=== PATIENT | female | born 1960 | race Caucasian/White ===

== ENCOUNTER 2019-07-05 17:17 | Emergency (ER) | payer SELFPAY ==
--- OUTSIDE RECORDS SUMMARY | 2019-07-05 17:18 | XMS REPORT | Summary of Care ---
:1960 Author Organization [facility] Address [address] [place] [id number] Care Team Providers Name Role Phone Jose Lisa Primary Care Provider Reason for Visit Reason Comments Refill Request Encounter Details Date Type Department Care Team Description 04/02/2019 Refill [facility] Endocrinology- Michael Canales MD Refill Request [address] Professional Office [address] Conteh [phone] [address] [place] [address] Allergies Active Allergy Reactions Severity Noted Date Comments Meperidine Hcl Other - See comments High 09/28/2018 migraine documented as of this encounter (statuses as of 04/02/2019) Medications Medication Sig Dispensed Refills Start Date End Date Status QUEtiapine Take 50mg 45 Tab 0 12/14/2013 Active (SEROQUEL) 50 mg nightly for two tablet nights then increase to 100mg nightly thereafter metoprolol tartrate Take 1 Tab by 60 Tab 0 12/14/2013 Active (LOPRESSOR) 25 mg mouth 2 (two) tablet times daily. metformin ER 500 mg Take 2 tablets 360 tablet 1 10/31/2018 Active 24 hr by mouth 2 tabletIndications: (two) times Uncontrolled type 2 daily. diabetes mellitus with hyperglycemia pravastatin 40 mg Take 1 tablet 90 tablet 1 10/31/2018 Active tablet by mouth at bedtime. glimepiride 2 mg Take 1 tablet 180 tablet 1 01/01/2019 Active tabletIndications: by mouth 2 Uncontrolled type 2 (two) times diabetes mellitus daily with with hyperglycemia meals. lisinopril 20 mg Take 1 tablet 30 tablet 3 04/02/2019 Active tabletIndications: by mouth daily. Essential hypertension lisinopril 20 mg Take 1 tablet 30 tablet 3 01/01/2019 Discontinued tabletIndications: by mouth daily. 9 Essential hypertension documented as of this encounter (statuses as of 04/02/2019) Active Problems Not on filedocumented as of this encounter (statuses as of 04/02/2019) Social History Tobacco Use Types Packs/Day Years Used Date Never Smoker Smokeless Tobacco: Never Used Sex Assigned at Date Recorded Not on file Job Start Date Occupation Industry Not on file Not on file Not on file Travel History Travel Start Travel End No recent travel history available. documented as of this encounter Last Filed Vital Signs Not on filedocumented in this encounter Plan of Treatment Date Type Specialty Care Team Description 07/03/2019 Office Visit Endocrinology Diabetes & CanalesMichael MD Metabolism [address] [place] [address] [phone] Health Maintenance Due Date Last Done Comments HEPATITIS C (HCV) SCREEN 1960 PNEUMOCOCCAL 0-64 YEARS COMBINED SERIES (1 1965 of 1 - PPSV23) CREATININE (SERUM) 1969 EYE EXAM 1969 LDL-C 1969 URINE MICROALBUMIN 1969 DTaP,Tdap,and Td Vaccines (1 - Tdap) 1978 PAP SMEAR 02/04/1980 MAMMOGRAM 1999 COLONOSCOPY 2009 Zoster Recombinant Vaccine (SHINGRIX) (1 2009 of 2) INFLUENZA VACCINE (#1) 2019 HgA1C 07/03/2019 01/01/2019 FOOT EXAM 09/29/2019 09/28/2018, 09/28/2018 documented as of this encounter Results Not on filedocumented in this encounter Visit Diagnoses Diagnosis Essential hypertension Unspecified essential hypertension documented in this encounter
--- OUTSIDE RECORDS SUMMARY | 2019-07-05 17:18 | XMS REPORT ---
:1960 Author Organization [facility] Address [address] [place] [address] Dr. Ambrosio [address] [place] [id number] Care Team Providers Name Role Phone Unavailable Unavailable Unavailable Problems This patient has no known problems. Allergies, Adverse Reactions, Alerts This patient has no known allergies or adverse reactions. Medications This patient has no known medications.
[2019-07-05 18:14] LABS: Urine Blood NEGATIVE (NEG); Urine Glucose NEGATIVE (NEG); Urine Protein NEGATIVE (NEG); Urine Specific Gravity <1.005 (1.005-1.030)
--- NOTE | 2019-07-05 18:14 | EDPHYS ---
Physician Documentation [facility] Name: Caryn Johnson Age: 59 yrs Sex: Female : 1960 Arrival Date: 07/05/2019 Time: 17:22 Bed 15 Private MD: ED Physician Humphrey Smith HPI: 07/05 17:59 This 59 yrs old Female presents to ER via EMS with complaints of Mental la1 health issue. 17:59 Pt reports that she has been having voices in her head that tell her that she is going la1 to go to hell and that she may or may not be saved. Pt Denies SI/HI states that she does not want to hurt herself. Reports a previous episode like this in 2004 for which she completed counseling and got better. Was placed on cymbalta by her PCP but quit after 10 days because she did not feel it was helping. . Onset: The symptoms/episode began/occurred today. Severity of symptoms: At their worst the symptoms were moderate in the emergency department the symptoms are unchanged. The patient has experienced a previous episode. The patient has been recently seen by a physician:. Historical: - Allergies: 17:55 Nalfon; ca1 17:55 Levaquin; ca1 - Home Meds: 17:55 Lisinopril Oral [Active]; Metformin Oral [Active]; glimepiride Oral [Active]; ca1 - PMHx: 17:55 Hypertension; Diabetes - NIDDM; Ovarian Ca; ca1 - PSHx: 17:55 Cholecystectomy; Hysterectomy; ca1 - Immunization history:: Adult Immunizations not up to date. - Social history:: Smoking status: Patient/guardian denies using tobacco. - Ebola Screening: : Patient negative for fever greater than or equal to 101.5 degrees Fahrenheit, and additional compatible Ebola Virus Disease symptoms Patient denies exposure to infectious person Patient denies travel to an Ebola-affected area in the 21 days before illness onset No symptoms or risks identified at this time. ROS: 18:02 Constitutional: Negative for fever, chills, and weight loss, Eyes: Negative for injury, la1 pain, redness, and discharge, ENT: Negative for injury, pain, and discharge, Neck: Negative for injury, pain, and swelling, Cardiovascular: Negative for chest pain, palpitations, and edema, Respiratory: Negative for shortness of breath, cough, wheezing, and pleuritic chest pain, Abdomen/GI: Negative for abdominal pain, nausea, vomiting, diarrhea, and constipation, Back: Negative for injury and pain, MS/Extremity: Negative for injury and deformity, Neuro: Negative for headache, weakness, numbness, tingling, and seizure. 18:02 Psych: Positive for anxiety, depression, auditory hallucinations, insomnia, Negative for drug dependence, alcohol dependence, visual hallucinations, homicidal ideation, suicide gesture, suicidal ideation. Exam: 18:02 Constitutional: This is a well developed, well nourished patient who is awake, alert, la1 and in no acute distress. Head/Face: Normocephalic, atraumatic. Eyes: Pupils equal round and reactive to light, extra-ocular motions intact. Periorbital areas with no swelling, redness, or edema. ENT: Mucous membranes moist. Neck: No Meningismus. Chest/axilla: Normal chest wall appearance and motion. Nontender with no deformity. No lesions are appreciated. Cardiovascular: Regular rate and rhythm with a normal S1 and S2. No gallops, murmurs, or rubs. Normal PMI, no JVD. No pulse deficits. Respiratory: Lungs have equal breath sounds bilaterally, clear to auscultation No rales, rhonchi or wheezes noted. No increased work of breathing, no retractions or nasal flaring. Abdomen/GI: Soft, non-tender, with normal bowel sounds. No distension or tympany. No guarding or rebound. No evidence of tenderness throughout. MS/ Extremity: Pulses equal, no cyanosis. Neurovascular intact. Full, normal range of motion. Vital Signs: 17:55 BP 164 / 92; Pulse 74; Resp 16 S; Pulse Ox 99% on R/A; Weight 69.4 kg (R); Height 5 ft. ca1 2 in. (157.48 cm) (R); Pain 0/10; 18:28 BP 149 / 91; Pulse 81; Resp 17 S; Pulse Ox 99% on R/A; ca1 17:55 Body Mass Index 27.98 (69.40 kg, 157.48 cm) ca1 MDM: 17:37 Patient medically screened. la1 18:11 Data reviewed: vital signs, nurses notes, I have discussed the patient's la1 presentation/case with the attending Emergency Department Physician; and as a result, I will discharge patient. Data interpreted: Pulse oximetry: on room air is 99 %. Interpretation: normal. Counseling: I had a detailed discussion with the patient and/or guardian regarding: the historical points, exam findings, and any diagnostic results supporting the discharge/admit diagnosis, the need for outpatient follow up, a family practitioner, a psychiatrist. ED course: Pt denies HI/SI, will FU with PCP, requesting medication to help with insomnia for the next few days. Discussed case with Dr. Rivera who states she may benefit from a short course of restoril at home until she can see her PCP. 07/05 17:32 Order name: Urine Dipstick--Ancillary (enter results) em1 Administered Medications: No medications were administered Disposition: 19:30 Co-signature as Attending Physician, Humphrey Smith MD. reggie Disposition: 07/05/19 18:13 Discharged to Home. Impression: Insomnia. - Condition is Stable. - Discharge Instructions: Insomnia. - Prescriptions for Restoril 15 mg Oral capsule - take 1 capsule by ORAL route once daily at bedtime as needed; 10 capsule. - Medication Reconciliation Form, Thank You Letter form. - Follow up: Private Physician; When: 2 - 3 days; Reason: Recheck today's complaints, Re-evaluation by your physician. - Problem is new. - Symptoms are unchanged. Signatures: Dispatcher [employer] EDHumphrey Cardoso MD MD pkl Attema, Lee, DIRECTOR OF CURRICULUM AND INSTRUCTION-C DIRECTOR OF CURRICULUM AND INSTRUCTION-Cla1 Katherine Ross RN RN ca1 Corrections: (The following items were deleted from the chart) 18:29 18:13 07/05/2019 18:13 Discharged to Home. Impression: Insomnia. Condition is Stable. ca1 Forms are Medication Reconciliation Form, Thank You Letter, Antibiotic Education, Prescription Opioid Use. Follow up: Private Physician; When: 2 - 3 days; Reason: Recheck today's complaints, Re-evaluation by your physician. Problem is new. Symptoms are unchanged. la1
--- NOTE | 2019-07-05 18:14 | ER ---
Nurse's Notes [facility] Name: Caryn Johnson Age: 59 yrs Sex: Female : 1960 Arrival Date: 07/05/2019 Time: 17:22 Bed 15 Private MD: Diagnosis: Insomnia Presentation: 07/05 17:36 Presenting complaint: EMS states: we were called for possible Suicidal Ideation. Family ca1 and pt reports she has been hearing voices for weeks now. Pt states, "the voices are telling me that I would like to but I am afraid of hell I don't want hurt myself or anybody". EMS also reported that initial blood sugar was 56, pt was given oranges and BGL increased do 87. Pt and family also reported recurrent UTIs which the pt is taking 2 courses of antibiotics. Presenting complaint: Pt reported she felt this way before, where she felt very sad and depressed. She was prescribed Cymbalta but only took it 10 days and stopped. Transition of care: patient was not received from another setting of care. Onset of symptoms was July 05, 2019. Risk Assessment: Do you want to hurt yourself or someone else? Patient reports no desire to harm self or others. Initial Sepsis Screen: Does the patient meet any 2 criteria? No. Patient's initial sepsis screen is negative. Initial Sepsis Screen: Does the patient have a suspected source of infection? No. Patient's initial sepsis screen is negative. Care prior to arrival: Glucose check: 87. 17:36 Method Of Arrival: EMS: [facility] ca1 17:36 Acuity: MAYTE 3 ca1 Historical: - Allergies: 17:55 Nalfon; ca1 17:55 Levaquin; ca1 - Home Meds: 17:55 Lisinopril Oral [Active]; Metformin Oral [Active]; glimepiride Oral [Active]; ca1 - PMHx: 17:55 Hypertension; Diabetes - NIDDM; Ovarian Ca; ca1 - PSHx: 17:55 Cholecystectomy; Hysterectomy; ca1 - Immunization history:: Adult Immunizations not up to date. - Social history:: Smoking status: Patient/guardian denies using tobacco. - Ebola Screening: : Patient negative for fever greater than or equal to 101.5 degrees Fahrenheit, and additional compatible Ebola Virus Disease symptoms Patient denies exposure to infectious person Patient denies travel to an Ebola-affected area in the 21 days before illness onset No symptoms or risks identified at this time. Screenin:55 Abuse screen: Denies threats or abuse. Denies injuries from another. Nutritional ca1 screening: No deficits noted. Tuberculosis screening: No symptoms or risk factors identified. Fall Risk None identified. Assessment: 17:55 General: Appears in no apparent distress. comfortable, Behavior is calm, cooperative, ca1 appropriate for age. Pain: Denies pain. Neuro: Level of Consciousness is awake, alert, obeys commands, Oriented to person, place, time, situation. Cardiovascular: Heart tones S1 S2 present Capillary refill < 3 seconds Patient's skin is warm and dry. Respiratory: Airway is patent Respiratory effort is even, unlabored, Respiratory pattern is regular, symmetrical, Breath sounds are clear bilaterally. GI: Abdomen is round non-distended, Bowel sounds present X 4 quads. Abd is soft and non tender X 4 quads. : No deficits noted. No signs and/or symptoms were reported regarding the genitourinary system. EENT: No deficits noted. No signs and/or symptoms were reported regarding the EENT system. Derm: Skin is intact, is healthy with good turgor, Skin is pink, warm \\T\\ dry. Musculoskeletal: Circulation, motion, and sensation intact. Capillary refill < 3 seconds, Range of motion: intact in all extremities. 18:28 Reassessment: Patient appears in no apparent distress at this time. Patient is alert, ca1 oriented x 3, equal unlabored respirations, skin warm/dry/pink. Pt with son and . Vital Signs: 17:55 BP 164 / 92; Pulse 74; Resp 16 S; Pulse Ox 99% on R/A; Weight 69.4 kg (R); Height 5 ft. ca1 2 in. (157.48 cm) (R); Pain 0/10; 18:28 BP 149 / 91; Pulse 81; Resp 17 S; Pulse Ox 99% on R/A; ca1 17:55 Body Mass Index 27.98 (69.40 kg, 157.48 cm) ca1 ED Course: 17:22 Patient arrived in ED. em1 17:30 Urine collected: clean catch specimen, clear. mh5 17:35 Katherine Ross, RN is Primary Nurse. ca1 17:37 Tyree Lou FNP-C is [facility]. la1 17:37 Humphrey Smith MD is Attending Physician. la1 17:44 Urine Dipstick--Ancillary (enter results) Sent. [facility] 17:49 Triage completed. ca1 17:55 No provider procedures requiring assistance completed. Patient did not have IV access ca1 during this emergency room visit. 17:55 Arm band placed on right wrist. ca1 17:55 Patient has correct armband on for positive identification. Placed in gown. Bed in low ca1 position. Call light in reach. Side rails up X 1. Pulse ox on. NIBP on. Warm blanket given. Administered Medications: No medications were administered Outcome: 18:13 Discharge ordered by . la1 18:29 Discharged to home ambulatory, with family. ca1 18:29 Condition: stable 18:29 Discharge instructions given to patient, family, Instructed on discharge instructions, follow up and referral plans. Demonstrated understanding of instructions, follow-up care, medications, Prescriptions given X 1. 18:29 Patient left the ED. ca1 Signatures: David Weiss 1 Tyree Lou FNP-C FNP-[facility]1 Anai Weiss [facility] Katherine Ross, RN RN ca1
[2019-07-05 18:56] VITALS: O2SAT 99
[2019-07-05 18:57] VITALS: BP 149/91
== END 2019-07-05 18:29 | disposition home or self-care (01) ==
LOC: ER 17:17
DX: G47.00 Insomnia, unspecified (principal); Z88.1 Allergy status to other antibiotic agents; I10 Essential (primary) hypertension; E11.9 Type 2 diabetes mellitus without complications; Z85.43 Personal history of malignant neoplasm of ovary
CPT/HCPCS: 81003; 99284

== ENCOUNTER 2021-06-07 15:15 | Inpatient (IN) | payer SELFPAY ==
--- OUTSIDE RECORDS SUMMARY | 2021-06-07 15:19 | XMS REPORT | Continuity of Care Document ---
:1960 Author Organization [facility] t Address [address] [place] [address] [address] [place] [address] Care Team Providers Name Role Phone Doctor Unassigned, Name Attending Clinician Unavailable Chintan Pinon MD Attending Clinician Parker CAST Attending Clinician Payers Payer Name Policy Type Policy Number Effective Date Expiration Date S ource Problems This patient has no known problems. Allergies, Adverse Reactions, Alerts Allergy Allergy Status Severity Reaction(s) Onset Inactive Treating Comm ents Source Name Type Date Date Clinician Ciproflo Propensi Active Swelling 0 Univ ers xacin ty to 2-15 ity of (Bulk) adverse 00:00: [place] reaction 00 Medical s Branch Levoflox Propensi Active Swelling 2019-0 Univ ers acin ty to 2-15 ity of adverse 00:00: [place] reaction 00 Medical s Branch Meperidi Propensi Active Other - See 201[address] migraine Univers ne Hcl ty to comments 3-08 ity of adverse 00:00: [place] reaction 00 Medical [facility] Social History Social Habit Start Date Stop Date Quantity Comments Source Sex Assigned At Uni versity [facility] Smoking Status Start Date Stop Date Source Never smoker [facility] Medications Ordered Filled Start Stop Current Ordering Indication Dosage Frequency Signature Comments Components Source Medication Medication Date Date Medication? Clinician (SIG) Name Name cefTRIAXone 2020- No 1000mg 1,000 mg, Univers (ROCEPHIN) 09-0816 IV ity of 1,000 mg in 07:30: 07:23 [place], [place] NaCl 0.9% 00 :00 ONCE, 1 Medical (NS) 50 mL dose, Sun Bran ch MINI-BAG 09/08/19 at 0130, 50 mL
Reas on for Anti-Infec tive: Documented Infection< br>Documen roosevelt Infection Site: Urine
D uration of Therapy: 7 days iohexol 2020- No 120mL 120 mL, Unive rs (OMNIPAQUE 16 -16 Intravenou it y of 350 06:41: 06:41 s, ONCE, 1 [place] BULK-100 00 :00 dose, Sun Medica l mL) 09/08/19 at Branch injection 0100, 120 mL Routine PARoxetine Yes [id number] 10mg Take 1 U nivers (PAXIL) 10 2-16 tablet by [place] mg [place] PARoxetine Yes [id number] 10mg Take 1 U nivers (PAXIL) 10 2-16 tablet by [place] mg [place] bed[place]. [place] cefdinir 2020- No [id number] 300mg Take 1 U nivers 300 mg 09-08 capsule by ity of capsule 00:00: 05:59 mouth 2 [place] 00 :00 (two) Medical times Branch daily for 8 days. METFORMIN 2018-07 Yes [id number] TAKE 2 U nivers ER 500 mg 1-08 TABLETS BY ity of 24 hr 00:00: MOUTH [place] tablet 00 TWICE Medical DAILY Branch METFORMIN 2018-07 Yes [id number] TAKE 2 U nivers ER 500 mg 1-08 TABLETS BY ity of 24 hr 00:00: MOUTH [place] tablet 00 TWICE Medical DAILY Branch lisinopril Yes [id number] 20mg Take 1 U nivers 20 mg 9-10 tablet by ity of tablet 00:00: mouth [place] 00 daily. Medical Branch lisinopril Yes [id number] 20mg Take 1 U nivers 20 mg 9-10 tablet by ity of tablet 00:00: mouth [place] 00 daily. Medical Branch lisinopril Yes [id number] 20mg Take 1 U nivers 20 mg 9-10 tablet by ity of tablet 00:00: mouth [place] 00 daily. Medical Branch glimepiride Yes [id number] 2mg Take 1 Univers 2 mg tablet 6-11 tablet by ity of 00:00: mouth 2 [place] 00 (two) Medical times Branch daily with meals. glimepiride Yes [id number] 2mg Take 1 Univers 2 mg tablet 6-11 tablet by ity of 00:00: mouth 2 [place] (two) Medical times Branch daily with meals. glimepiride Yes [id number] 2mg Take 1 Univers 2 mg tablet 6-11 tablet by ity of 00:00: mouth 2 [place] 00 (two) Medical times Branch daily with meals. lisinopril 2019- No [id number] 20mg Take 1 Univers 20 mg 6-11 09-10 tablet by ity of tablet 00:00: 00:00 mouth [place] 00 :00 daily. Medical Branch pravastatin Yes 40mg Take 1 Univ ers 40 mg 4-10 tablet by ity of tablet 00:00: mouth at [place] [address] bedtime. Medical Branch pravastatin Yes 40mg Take 1 Univ ers 40 mg 4-10 tablet by ity of tablet 00:00: mouth at [place] [address] bedtime. Medical Branch metformin Yes [id number] 1000mg Take 2 Univers ER 500 mg 4-10 tablets by ity of 24 hr 00:00: mouth 2 [place] tablet 00 (two) Medical times Branch daily. pravastatin Yes 40mg Take 1 Univ ers 40 mg 4-10 tablet by ity of tablet 00:00: mouth at [place] [address] bedtime. Medical Branch QUEtiapine Yes Take 50mg Un aleksandar (SEROQUEL) 5-24 nightly ity of 50 mg 00:00: for two [place] tablet 00 nights Medical then Branch increase to 100mg nightly thereafter metoprolol Yes 25mg Take 1 Tab U nivers tartrate 5-24 by mouth 2 ity o f (LOPRESSOR) 00:00: (two) [place] 25 mg 00 times Medical tablet daily. Branch QUEtiapine Yes Take 50mg Un aleksandar (SEROQUEL) 5-24 nightly ity of 50 mg 00:00: for two [place] tablet 00 nights Medical then Branch increase to 100mg nightly thereafter metoprolol 2013-0 Yes 25mg Take 1 Tab U nivers tartrate 5-24 by mouth 2 ity o f (LOPRESSOR) 00:00: (two) [place] 25 mg 00 times Medical tablet daily. Branch QUEtiapine Yes Take 50mg Un aleksandar (SEROQUEL) 5-24 nightly ity of 50 mg 00:00: for two [place] tablet 00 nights Medical then Branch increase to 100mg nightly thereafter metoprolol 2014-0 Yes 25mg Take 1 Tab U nivers tartrate 5-24 by mouth 2 ity o f (LOPRESSOR) 00:00: (two) [place] 25 mg 00 times Medical tablet daily. Branch Vital Signs Vital Name Observation Time Observation Value Comments Source Systolic blood 2019-09-08 07:02:00 167 mm[Hg] [facility] Diastolic blood 2019-09-08 07:02:00 96 mm[Hg] [facility] Heart rate 2019-09-08 07:02:00 83 /min [facility] Body temperature 2019-09-08 07:02:00 35.83 Lizette [facility] Respiratory rate 2019-09-08 07:02:00 20 /min [facility] Oxygen saturation in 2019-09-08 07:02:00 98 /min [facility] blood by [facility] Pulse oximetry Branch Body weight 2019-09-08 02:49:00 72.576 kg [facility] BMI 2019-09-08 02:49:00 29.26 kg/m2 [facility] Procedures Procedure Date / Time Performing Clinician Source Performed AUTHORIZATION FOR 2019-10-25 05:01:00 Doctor Unassigned, No Univ [facility] RELEASE OF PHI Name [facility] Branch URINALYSIS 2019-09-08 05:30:00 Rojelio Pinon [facility] TROPONIN I 2019-09-08 04:54:00 Rojelio Pinon [facility] EKG-12 LEAD 2019-09-08 04:30:45 Rojelio Pinon [facility] XR ABDOMEN ACUTE SERIES 2019-09-08 03:53:54 Rojelio Pinon [facility] CBC WITH DIFFERENTIAL 2019-09-08 03:07:00 Rojelio Pinon [facility] CK (CREATINE KINASE) + 2019-09-08 03:07:00 Rojelio Pinon [facility] Branch LIPASE 2019-09-08 03:07:00 Rojelio Pinon [facility] COMP. METABOLIC PANEL 2019-09-08 03:07:00 WilmerutRojelio [facility] ([id number]) Medical Branch Encounters Start End Encounter Admission Attending Care Care Encounter Source Date/Time Date/Time Type Type Clinicians Facility Department ID 2019-10-25 2019-10-25 Orders Doctor CADENCE [id number] Univers 00:00:00 00:00:00 Only Unassigned, MANUEL [id number] ity of [place] [facility] 4.2.7.2.686 [place]ah[place] as [id number] [facility] 009 Branch 2019-09-07 2019-09-08 Emergency Vasut, TRAUMA [id number] Univers 20:51:07 01:39:00 Rojelio Woodson [place] [id number] [place] [id number] [facility] 014 Branch 2019-04-02 2019-04-02 Katrina Canales [facility] [id number] Univers 00:00:00 00:00:00 Michael Hewitt 350.1.13.10 i [place] Profess[place] [id number] Nm dical nal [address] Branch Building Results Test Description Test Time Test Comments Results Result Comments Source URINALYSIS 2019-09-08 06:01:00 Test Item Value Reference Range Interpretation Comme nts APPEARANCE (test code = Turbid Clear A 6160478963) COLOR (test code = 3413908567) Yellow Yellow PH (test code = 4279564627) 4.8-8.0 SP GRAVITY (test code = 1.003-1.030 8062269897) GLU U QUAL (test code = 50 mg/dL Normal A 9599128599) BLOOD (test code = 7359139108) 1+ Negative A KETONES (test code = 9844213129) 20 mg/dL Negative A PROTEIN (test code = 2887-8) 100 mg/dL Negative A UROBILIN (test code = 4.0 mg/dL Normal A 1137878552) BILIRUBIN (test code = Negative Negative 8890691513) NITRITE (test code = 7217924437) Positive Negative A LEUK JUANY (test code = 75/uL Negative A 5643002780) RBC/HPF (test code = 6601210065) <1 See_Comment [Automated message] The system which ge nerated this result transmit roosevelt reference range: 0 - 3 HP F. The reference range was not used to interpret th is result as normal/abnormal . WBC/HPF (test code = 2970859835) >182 See_Comment H [Automated message] The system which ge nerated this result transmit roosevelt reference range: 0 - 5 HP F. The reference range was not used to interpret th is result as normal/abnormal . BACTERIA (test code = Many Negative A 7071527710) MUCOUS (test code = 8639170179) Marked Negative LPF A SQ EPITH (test code = See_Comment H [Auto mated message] The 5101983282) system which ge nerated this result transmit roosevelt reference range: <=2 HPF. The reference range was not used to interpret th is result as normal/abnormal . WBC CLUMPS (test code = See_Comment H [Au tomated message] The 0489802446) system which ge nerated this result transmit roosevelt reference range: <=1 HPF. The reference range was not used to interpret th is result as normal/abnormal . HYAL CAST (test code = See_Comment H [Aut omated message] The 9287353759) system which ge nerated this result transmit roosevelt reference range: <=2 LPF. The reference range was not used to interpret th is result as normal/abnormal . Lab Interpretation (test code = Abnormal 28445-7) [facility] + [id number] 05:31:00 Test Item Value Reference Range Interpretation Comments CK (test code = 43 U/L 33-194 Slight hemol ysis 6234466523) CK-MB (test code = 1.42 ng/mL See_Comment [Automat ed 4078196333) message] The system which generated this result transmitted reference range : <=3.50. The reference range was not used to interpret this result as normal/abnormal . CKMB INDEX (test code 3.3 % 0-2.5 H Slight hemolysis = 1474367949) MATTHEW (test code = MATTHEW) Biotin has been reported to cause a negative bias, interpret results relative to patient's use of biotin. Lab Interpretation Abnormal (test code = 13799-5) [facility] [id number] 05:29:00 Test Item Value Reference Range Interpretation Comments TROPONIN I (test 0.014 ng/mL See_Comment [Automated code = 7056620359) message] The system which generated this result transmitted reference range : <=0.034. The reference range was not used to interpret this result as normal/abnormal . MATTHEW (test code = Equal or Less than MATTHEW) 0.034 ng/ml---Normal ?Note: Cardiac troponin begins to rise 3-4 hours after the onset of ischemia. Repeat in 4-6 hours if the sample was drawn within 3-4 hours of the onset of the symptom and found normal. Between 0.035 and 0.120 ng/mL--- Borderline. Questionable myocardial injury or necrosis ? ?Note: Serial measurement may be necessary to confirm or exclude the diagnosis of myocardial injury or necrosis; Clinical correlation (symptoms, EKGs, imaging studies, and others) required; Repeat in 4-6 hours if clinically indicated. ? Equal or Higher than 0.121 ng/mL---Abnormal. Myocardial Injury or Necrosis Likely ? Biotin has been reported to cause a negative bias, interpret results relative to patient's use of biotin. ? Lab Interpretation Normal (test code = 66153-4) [facility]UTE [id number] 05:15:52 Unremarkable acute abdomen series. No significant colonic stool burden. Preliminary Report Dictated by Resident: Alexander Valdes MD., have reviewed this study and agree with theabove report.EXAM: XR ABDOMEN ACUTE SERIES HISTORY: 59 years-old Female presenting with abodminal pain, constipation COMPARISON: No prior studies available for comparison. TECHNIQUE: Supine and uprightradiographs of the chest and abdomen wereobtained. FINDINGS: The lungs are clear with no focal consolidation. No pleural effusion orpneumothorax is present. The heart is normal in size. The bowel gas pattern is non-obstructive. No evidence of freeintra-abdominal air is present. No abnormal calcifications are identified.There is mild S-shaped scoliosis of the thoracolumbar spine. Multiple surgical danny overlie the lower abdomen and pelvis. Phlebolithsare scattered throughout the pelvis. [facility], Radiant Results Inft User - 09/07/2019 11:16 PM CSTEXAM: XR ABDOMEN ACUTE SERIESHISTORY: 59 years-old Female presenting with abodminal pain, constipation COMPARISON: No prior studies available for comparison.TECHNIQUE: Supine and upright radiographs of the chest and abdomen wereobtained.FINDINGS:The lungsare clear with no focal consolidation. No pleural effusion orpneumothorax is present. The heart is no rmal in size.The bowel gas pattern is non-obstructive. No evidence of freeintra- abdominal air is present. No abnormal calcifications are identified.There is mild S-shaped scoliosis of the thoracolumbarspine. Multiple surgical danny overlie the lower abdomen and pelvis. Phlebolithsare scattered throughout the pelvis.IMPRESSIONUnremarkable acute abdomen series. No significant colonic stool burden.Preliminary Report Dictated by Resident: Carlito Reza, Alexander Queen MD., have reviewed this study and agree with theabove report. [facility]. METABOLIC PANEL ([id number])2019-09-08 03:26:00 Test Item Value Reference Range Interpretation Comments NA (test code = 133 mmol/L 135-145 L 3780955511) K (test code = 4.0 mmol/L 3.5-5 Slight 3694573160) hemolysis CL (test code = 97 mmol/L 98-108 L 7836053183) CO2 TOTAL (test code 22 mmol/L 23-31 L = 3633173482) AGAP (test code = 2-16 2870795756) BUN (test code = 15 mg/dL 7-23 Slight 0566845431) hemolysis GLUCOSE (test code = 143 mg/dL 70-110 H 7275171891) CREATININE (test code 1.34 mg/dL 0.5-1.04 H = 2629641545) TOTAL BILI (test code 1.3 mg/dL 0.1-1.1 H = 7764632568) CALCIUM (test code = 9.7 mg/dL 8.6-10.6 9178844659) T PROTEIN (test code 6.8 g/dL 6.3-8.2 = 6151171101) ALBUMIN (test code = 4.2 g/dL 3.5-5 7227811504) ALK PHOS (test code = 45 U/L 34-122 Slight 2534436360) hemolysis ALTv (test code = 9 U/L 5-35 1742-6) AST(SGOT) (test code 19 U/L 13-40 Slight = 2425968517) hemolysis eGFR Calculation mL/min/1.73m2 (Non-) (test code = 8905088851) eGFR Calculation mL/min/1.73m2 () (test code = 3886248249) MATTHEW (test code = MATTHEW) Association of Glomerular Filtration Rate (GFR) and Staging of Kidney Disease* + -----+ --------+ +| GFR (mL/min/1.73 m2) ?| With Kidney Damage ?| ?Without Kidney Damage+ +------- +---- --+| ?>90 ?| ?Stage one ?| ? Normal ?+ ------+ ---------+--------- +| ?60-89 ?| ?Stage two ?| ? Decreased GFR ? + -----+ --------+ +| ?30-59 ?| ?Stage three ?| ? Stage three ? + -----+ --------+ +| ?15-29 ?| ?Stage four ? | ? Stage four ?+ ------+ ---------+--------- +| ?<15 (or dialysis) ? ?| ?Stage five ? | ? Stage five ?+ ------+ ---------+--------- + *Each stage assumes the associated GFR level has been in effect for at least three months. ?Stages 1 to 5, with or without kidney disease, indicate chronic kidney disease. Notes: Determination of stages one and two (with eGFR >59mL/min/1.73 m2) requires estimation of kidney damage for at least three months as defined by structural or functional abnormalities of the kidney, manifested by either:Pathological abnormalities or Markers of kidney damage (including abnormalities in the composition of the blood or urine or abnormalities in imaging tests). Lab Interpretation Abnormal (test code = 40518-3) [facility]00 Test Item Value Reference Range Interpretation Comments LIPASE (test code = 7487938415) 141 U/L 0-220 Lab Interpretation (test code = Normal 81612-7) [facility] WITH [id number] 03:18:00 Test Item Value Reference Range Interpretation Comments WBC (test code = See_Comment [Automated 6690-2) message] The sy stem which generated this result transmitted reference range : 4.30 - 11.10 10*3/?L. The reference range was not used to interpret this result as normal/abnormal . RBC (test code = See_Comment [Automated 789-8) message] The sy stem which generated this result transmitted reference range : 3.93 - 5.25 10*6/?L. The reference range was not used to interpret this result as normal/abnormal . HGB (test code = 11.7 g/dL 11.6-15 718-7) HCT (test code = 34.2 % 35.7-45.2 L 4544-3) MCV (test code = 84.7 fL 80.6-95.5 787-2) MCH (test code = 29.0 pg 25.9-32.8 785-6) MCHC (test code = 34.2 g/dL 31.6-35.1 786-4) RDW-SD (test code = 41.4 fL 39-49.9 12810-4) RDW-CV (test code = 13.3 % 12-15.5 788-0) PLT (test code = See_Comment H [Automated 777-3) message] The sy stem which generated this result transmitted reference range : 166 - 358 10*3/ ?L. The reference r rashel was not used to interpret this result as normal/abnormal . MPV (test code = 8.9 fL 9.5-12.9 L 83965-1) NRBC/100 WBC (test See_Comment [Automat ed code = 3094716158) message] The system which generated this result transmitted reference range : 0.0 - 10.0 /100 WBCs. The refer ence range was not u sed to interpret th is result as normal/abnormal . NRBC x10^3 (test code <0.01 See_Comment [Auto mated = 8386340015) message] The s ystem which generated this result transmitted reference range : 10*3/?L. The reference range was not used to interpret this result as normal/abnormal . GRAN MAT (NEUT) % 63.6 % (test code = 770-8) IMM GRAN % (test code 0.60 % = 0079742718) LYMPH % (test code = 27.0 % 736-9) MONO % (test code = 7.4 % 5905-5) EOS % (test code = 0.6 % 713-8) BASO % (test code = 0.8 % 706-2) GRAN MAT x10^3(ANC) 5.91 10*3/uL 1.88-7.09 (test code = 0809760126) IMM GRAN x10^3 (test 0.06 10*3/uL 0-0.06 code = 1187316502) LYMPH x10^3 (test code 2.51 10*3/uL 1.32-3.29 = 731-0) MONO x10^3 (test code 0.69 10*3/uL 0.33-0.92 = 742-7) EOS x10^3 (test code = 0.06 10*3/uL 0.03-0.39 711-2) BASO x10^3 (test code 0.07 10*3/uL 0.01-0.07 = 704-7) Lab Interpretation Abnormal (test code = 00130-8) [facility]"
[2021-06-07] MEDS ORDERED: METHYLPREDNISOLONE 125 MG INJ ONE (15:44)
[2021-06-07 16:21] LABS: Absolute Lymphocytes (CBC) 0.9 K/uL (0.7-4.9); Basophils % 0.3 % (0-1.3); Lymphocytes % 8.5 % (15.3-44.8); MPV 7.9 fL (7.6-11.3); RBC Red Blood Cell Count 4.07 M/uL (3.86-4.86)
[2021-06-07 16:25] LABS: Protime INR 1.04
[2021-06-07 16:43] LABS: ALT/SGPT 18 U/L (12-78); AST/SGOT 20 U/L (15-37); Albumin 2.5 g/dL (3.4-5.0); Alkaline Phosphatase 73 U/L (45-117); BUN Blood Urea Nitrogen 23 mg/dL (7-18); Bicarbonate 22 mmol/L (21-32); Bilirubin Direct 0.3 mg/dL (0-0.2); Bilirubin Total 0.7 mg/dL (0.2-1.0); Ferritin 886.5 ng/mL (8-388); Glucose Level 275 mg/dL (74-106); Potassium 3.4 mmol/L (3.5-5.1); Sodium Level 128 mmol/L (136-145); Troponin (Emerg Dept Use Only) < 0.02 ng/mL (0.0-0.045)
--- NOTE | 2021-06-07 16:51 | EDPHYS ---
Physician Documentation [facility] Name: Caryn Johnson Age: 61 yrs Sex: Female : 1960 Arrival Date: 06/07/2021 Time: 15:19 Bed 5 Private MD: Pee To ED Physician Abdoulaye Vyas HPI: 06/07 16:43 This 61 yrs old Female presents to ER via Ambulatory with complaints of jr8 Covid+, Shortness Of Breath. 16:43 The patient has shortness of breath at rest, with light activity. Onset: The jr8 symptoms/episode began/occurred gradually, 5 day(s) ago. Duration: The symptoms are continuous. The patient's shortness of breath is aggravated by light activity, walking. Associated signs and symptoms: Pertinent positives: non-productive cough. Severity of symptoms: At their worst the symptoms were moderate in the emergency department the symptoms are unchanged. The patient has not experienced similar symptoms in the past. The patient has not recently seen a physician. This is a 61-year-old female patient that presented to the emergency room with gradual increasing onset of shortness of breath. Patient stated that she became symptomatic with shortness of breath, nausea, vomiting, diarrhea this past Monday. Was tested and found out on Monday that she was positive for Covid. Patient stated that for the past couple days her GI symptoms have cleared up but that her shortness of breath continues to get worse.. Historical: - Allergies: 15:30 Levaquin; tw2 15:30 Nalfon; tw2 15:30 Fenoprofen; tw2 - Home Meds: 15:30 Glimepiride Oral [Active]; lisinopril Oral [Active]; Metformin Oral [Active]; tw2 - PMHx: 15:30 Diabetes - NIDDM; Hypertension; ovarian CA; tw2 - Immunization history:: Adult Immunizations. - Social history:: Smoking status: . ROS: 16:43 Eyes: Negative for injury, pain, redness, and discharge, ENT: Negative for injury, jr8 pain, and discharge, Neck: Negative for injury, pain, and swelling, Cardiovascular: Negative for chest pain, palpitations, and edema, Back: Negative for injury and pain, MS/Extremity: Negative for injury and deformity, Skin: Negative for injury, rash, and discoloration, Neuro: Negative for headache, weakness, numbness, tingling, and seizure. 16:43 Respiratory: Positive for cough, dyspnea on exertion, shortness of breath. 16:43 Abdomen/GI: Positive for nausea, vomiting, and diarrhea. Exam: 16:43 Neck: Trachea midline, no thyromegaly or masses palpated, and no cervical jr8 lymphadenopathy. Supple, full range of motion without nuchal rigidity, or vertebral point tenderness. No Meningismus. Cardiovascular: Regular rate and rhythm with a normal S1 and S2. No gallops, murmurs, or rubs. Normal PMI, no JVD. No pulse deficits. Abdomen/GI: Soft, non-tender, with normal bowel sounds. No distension or tympany. No guarding or rebound. No evidence of tenderness throughout. Skin: Warm, dry with normal turgor. Normal color with no rashes, no lesions, and no evidence of cellulitis. MS/ Extremity: Pulses equal, no cyanosis. Neurovascular intact. Full, normal range of motion. Neuro: Awake and alert, GCS 15, oriented to person, place, time, and situation. Cranial nerves II-XII grossly intact. Motor strength 5/5 in all extremities. Sensory grossly intact. 16:43 Respiratory: mild respiratory distress is noted, Respirations: labored breathing, tachypnea, that is mild, Breath sounds: are clear throughout. Vital Signs: 15:28 Resp 24; Temp 98.3(TE); Pulse Ox 80% on R/A; tw2 16:15 BP 160 / 81; Pulse 76; Resp 15; Pulse Ox 91% on 3 lpm NC; jl7 16:35 BP 159 / 82; Pulse 78; Resp 18; Pulse Ox 93% ; ll3 17:42 BP 165 / 77; Pulse 82; Resp 24; Pulse Ox 92% ; ll3 19:00 BP 156 / 67; Pulse 77; Resp 20; Pulse Ox 93% ; ll3 19:28 BP 156 / 67; Pulse 75; Resp 24; Pulse Ox 94% on 4 lpm NC; tw5 15:28 pt placed on 3L NC at this time and moved to ER bed 5 tw2 MDM: 15:23 Patient medically screened. jr8 16:42 Data reviewed: vital signs, nurses notes, lab test result(s), EKG, radiologic studies, jr8 CT scan, plain films. Data interpreted: Pulse oximetry: on room air is 80 %. Interpretation: hypoxia. Counseling: I had a detailed discussion with the patient and/or guardian regarding: the historical points, exam findings, and any diagnostic results supporting the discharge/admit diagnosis, lab results, radiology results, the need for further work-up and treatment in the hospital. 06/07 15:38 Order name: BMP; Complete Time: 16:50 06/07 15:38 Order name: Blood Culture Adult (2) [facility] 06/07 15:38 Order name: C-Reactive Protein; Complete Time: 16:50 06/07 15:38 Order name: CBC with Diff 06/07 15:38 Order name: D-Dimer; Complete Time: 16:50 06/07 15:38 Order name: Ferritin; Complete Time: 16:50 06/07 15:38 Order name: LFT's; Complete Time: 16:50 [facility] 06/07 15:38 Order name: Lactate; Complete Time: 16:39 06/07 15:38 Order name: PT-INR; Complete Time: 16:50 06/07 15:38 Order name: Procalcitonin; Complete Time: 16:58 06/07 15:38 Order name: Ptt, Activated; Complete Time: 16:50 06/07 15:38 Order name: Troponin (emerg Dept Use Only); Complete Time: 16:50 06/07 15:38 Order name: CXR XRAY; Complete Time: 17:46 06/07 15:38 Order name: COVID-19 SARS RT PCR (Document "Date of Onset" if Symptomatic) [facility] 06/07 15:38 Order name: EKG; Complete Time: 15:38 06/07 15:38 Order name: Cardiac monitoring; Complete Time: 16:14 06/07 15:38 Order name: Droplet/Contact Precautions; Complete Time: 16:14 06/07 15:38 Order name: EKG - Nurse/Tech; Complete Time: 16:14 06/07 15:38 Order name: IV Start; Complete Time: 16:14 06/07 15:38 Order name: Labs collected and sent; Complete Time: 16:14 15 15:38 Order name: O2 Per Protocol; Complete Time: 16:14 8 06/07 15:38 Order name: O2 Sat Monitoring; Complete Time: 16:15 06/07 16:43 Order name: CT Chest For PE Angio; Complete Time: 17:26 06/07 17:30 Order name: CONS Physician Consult EDMS Administered Medications: 16:13 Drug: SOLU-Medrol (methylPrednisoLONE) 125 mg Route: IVP; Site: right hand; ll3 16:49 Follow up: Response: No adverse reaction ll3 17:51 Drug: NS 0.9% 1000 ml Route: IV; Rate: 1000 ml; Site: right hand; ll3 19:24 Follow up: Response: No adverse reaction; IV Status: Infusion continued upon admission ll3 19:27 Follow up: Response: No adverse reaction; IV Status: Completed infusion tw5 Disposition: 06/08 07:01 Co-signature as Attending Physician, Abdoulaye Vyas MD I agree with the assessment and rn plan of care. Attestation: The patient's history, exam findings, diagnostics, and a summary of any interventions or procedures was reviewed in detail with Raimundo BLANTON. Disposition Summary: 06/07/21 16:50 Hospitalization Ordered Hospitalization Status: Inpatient Admission 8 Provider: Pee To Condition: Fair jr8 Problem: new jr8 Symptoms: have improved jr8 Bed/Room Type: Standard [facility] Location: Intensive Care Unit(06/07/21 19:00) cg Room Assignment: 6-(06/07/21 19:00) cg Diagnosis - Pneumonia due to SARS-associated coronavirus jr8 - SARS-associated coronavirus as the cause of diseases classified elsewhere jr8 - Acute respiratory failure with hypoxia jr8 Forms: - Medication Reconciliation Form jr8 - SBAR form jr8 Signatures: Dispatcher [employer] EDMS Abdoulaye Vyas MD MD rn Roszak, Josh, PA PA jr8 Mae Bradshaw RN RN cg Nichole Hilario RN RN tw2 Prakash Saldana RN RN 3 Neris Mejia tw5 Corrections: (The following items were deleted from the chart) 06/07 19:00 16:50 Telemetry/MedSurg (Inpatient) jr8 cg 19:00 16:50 jr8 cg
--- NOTE | 2021-06-07 16:51 | ER ---
Nurse's Notes [facility] Name: Caryn Johnson Age: 61 yrs Sex: Female : 1960 Arrival Date: 06/07/2021 Time: 15:19 Bed 5 Private MD: Pee To Diagnosis: Pneumonia due to SARS-associated coronavirus;SARS-associated coronavirus as the cause of diseases classified elsewhere;Acute respiratory failure with hypoxia Presentation: 06/07 15:20 Chief complaint: Patient states: pt complaints of sob. tw2 15:20 Method Of Arrival: Ambulatory tw2 15:23 Ebola Screen: Patient denies travel to an Ebola-affected area in the 21 days before tw2 illness onset. Initial Sepsis Screen: Does the patient meet any 2 criteria? No. Patient's initial sepsis screen is negative. Does the patient have a suspected source of infection? Yes: Productive cough/pneumonia. Risk Assessment: Do you want to hurt yourself or someone else? Patient reports no desire to harm self or others. Onset of symptoms was June 07, 2021. 15:28 Chief complaint: Dr. Box in triage with pt. SOB for about a week. Coronavirus screen: tw2 diarrhea, nausea, shortness of breath, vomiting. Client presents with at least one sign or symptom that may indicate coronavirus-19. Standard/surgical mask placed on the client. Provider contacted for isolation considerations. 15:28 Acuity: MAYTE 2 tw2 Triage Assessment: 15:20 General: Appears uncomfortable, Behavior is cooperative, appropriate for age. Pain: tw2 Denies pain. Respiratory: Reports shortness of breath at rest on exertion Onset: The symptoms/episode began/occurred 1 week now, the patient has severe shortness of breath. Historical: - Allergies: 15:30 Levaquin; tw2 15:30 Nalfon; tw2 15:30 Fenoprofen; tw2 - Home Meds: 15:30 Glimepiride Oral [Active]; lisinopril Oral [Active]; Metformin Oral [Active]; tw2 - PMHx: 15:30 Diabetes - NIDDM; Hypertension; ovarian CA; tw2 - Immunization history:: Adult Immunizations. - Social history:: Smoking status: . Screenin:31 Abuse screen: Denies threats or abuse. Nutritional screening: No deficits noted. tw2 Tuberculosis screening: No symptoms or risk factors identified. Fall Risk None identified. Assessment: 15:45 General: Appears in no apparent distress. uncomfortable, Behavior is calm, cooperative, ll3 appropriate for age. Pain: Denies pain. Neuro: Level of Consciousness is awake, alert, Speech is normal, Facial symmetry appears normal. Cardiovascular: Patient's skin is warm and dry. Rhythm is sinus rhythm. Respiratory: Reports shortness of breath Airway is patent Trachea midline Respiratory effort is even, unlabored, Respiratory pattern is regular, symmetrical. 15:45 Derm: Skin is pink, warm \\T\\ dry. ll3 16:16 Reassessment: Pt states "[facility] Pt jl7 unable to obtain results. 18:01 Reassessment: Patient appears in no apparent distress at this time. Patient and/or ll3 family updated on plan of care and expected duration. Pain level reassessed. Patient is alert, oriented x 3, equal unlabored respirations, skin warm/dry/pink. Patient states symptoms have improved. 19:28 Respiratory: Breath sounds are coarse bilaterally. tw5 Vital Signs: 15:28 Resp 24; Temp 98.3(TE); Pulse Ox 80% on R/A; tw2 16:15 BP 160 / 81; Pulse 76; Resp 15; Pulse Ox 91% on 3 lpm NC; jl7 16:35 BP 159 / 82; Pulse 78; Resp 18; Pulse Ox 93% ; ll3 17:42 BP 165 / 77; Pulse 82; Resp 24; Pulse Ox 92% ; ll3 19:00 BP 156 / 67; Pulse 77; Resp 20; Pulse Ox 93% ; ll3 19:28 BP 156 / 67; Pulse 75; Resp 24; Pulse Ox 94% on 4 lpm NC; tw5 15:28 pt placed on 3L NC at this time and moved to ER bed 5 tw2 ED Course: 15:19 Patient arrived in ED. mr 15:19 Pee To MD is Private Physician. mr 15:23 Raimundo Foster [facility]. jr8 15:23 Abdoulaye Vyas MD is Attending Physician. jr8 15:23 Bed in low position. Call light in reach. Adult w/ patient. Pulse ox on. NIBP on. tw2 15:30 Triage completed. tw2 15:30 Arm band placed on. tw2 15:40 Prakash Saldana, ERIC is Primary Nurse. ll3 15:45 Inserted saline lock: 20 gauge in right hand, using aseptic technique. ll3 16:15 EKG done, by ED staff, reviewed by Raimundo BLANTON. jl7 16:18 CXR XRAY In Process Unspecified. EDMS 16:48 Pee To MD is Hospitalizing Provider. jr8 17:15 CT Chest For PE Angio In Process Unspecified. EDMS 18:00 Inserted saline lock: 20 gauge in left forearm, using aseptic technique. ll3 19:17 No provider procedures requiring assistance completed. Patient admitted, IV remains in ll3 place. intact, No redness/swelling at site. 19:28 Door closed. Noise minimized. Moved to private room. tw5 Administered Medications: 16:13 Drug: SOLU-Medrol (methylPrednisoLONE) 125 mg Route: IVP; Site: right hand; ll3 16:49 Follow up: Response: No adverse reaction ll3 17:51 Drug: NS 0.9% 1000 ml Route: IV; Rate: 1000 ml; Site: right hand; ll3 19:24 Follow up: Response: No adverse reaction; IV Status: Infusion continued upon admission ll3 19:27 Follow up: Response: No adverse reaction; IV Status: Completed infusion tw5 Outcome: 16:50 Decision to Hospitalize by Provider. jr8 19:12 Admitted to ICU Report called to Report called to Tay RN on ICU. tw5 19:16 Admitted to ICU Other awaiting on [facility] tw5 19:18 Condition: good ll3 19:28 Admitted to ICU accompanied by nurse, accompanied by tech, via wheelchair, room 6, with tw5 oxygen, with chart. 19:29 Patient left the ED. tw5 Signatures: Dispatcher [employer] EDAZ Lisset Barrera mr Foster, HARVINDER Eubanks jr8 Nichole Hilario, RN RN tw2 Zack Saini Jahala, RN RN jl7 Neris Mejia tw5 Prakash Saldana, RN RN ll3 Corrections: (The following items were deleted from the chart) 15:30 15:28 Resp 24bpm; Pulse Ox 80% RA; Temp 98.3F Temporal; pt placed on 3L NC at this tw2 time; tw2 17: 16:50 General: Appears in no apparent distress. uncomfortable, Behavior is calm, ll3 cooperative, appropriate for age, ll3 17: 16:50 Pain: Denies pain. ll3 ll3 17: 16:50 Neuro: Level of Consciousness is awake, alert, Speech is normal, Facial symmetry ll3 appears normal, ll3 17: 16:50 Cardiovascular: Patient's skin is warm and dry. Rhythm is sinus rhythm ll3 ll3 17: 16:50 Respiratory: Reports shortness of breath Airway is patent Trachea midline ll3 Respiratory effort is even, unlabored, Respiratory pattern is regular, symmetrical, ll3 17: 16:50 GI: Abdomen is round non-distended, ll3 ll3 17:11 16:50 : ll3 ll3 17:11 16:50 Derm: Skin is pink, warm \\T\\ dry. ll3 ll3 17:11 15:45 Respiratory: Reports shortness of breath Airway is patent Trachea midline ll3 Respiratory effort is even, unlabored, Respiratory pattern is regular, symmetrical, ll3 19:17 19:15 Inserted oe ll3
[2021-06-07] MEDS ORDERED: NA CHLORIDE 0.9% 1,000 ML ONE (17:19)
--- NOTE | 2021-06-07 17:22 | RAD REPORT ---
EXAM DESCRIPTION: CT - Chest For Pe Angio - 06/07/2021 5:15 pm CLINICAL HISTORY: DYSPNEA COMPARISON: No comparisons FINDINGS: Chest Wall: No suspicious thyroid nodules or pathologic lymphadenopathy. Lungs: Moderate bilateral airspace disease. Pleura: No significant effusions or pneumothorax. Mediastinum/lashell: Mediastinal hilar adenopathy which is likely reactive. Pulmonary arteries/Aorta: No filling defect identified. No aortic aneurysm. Heart: No significant pericardial effusion. Normal heart size. Coronary artery calcifications. Upper abdomen: No acute abnormality. Bones: No acute abnormality. All CT scans are performed using dose optimization technique as appropriate and may include automated exposure control or mA/KV adjustment according to patient size. IMPRESSION: Negative for pulmonary embolism. Moderate bilateral airspace disease concerning for Covi d-19 pneumonia.
--- NOTE | 2021-06-07 17:32 | RAD REPORT ---
EXAM DESCRIPTION: RAD - Chest Single View - 06/07/2021 4:18 pm CLINICAL HISTORY: Dyspnea;Fever COMPARISON: July 2017 TECHNIQUE: AP portable chest image was obtained 06/07/2021 4:18 pm . FINDINGS: Lung volumes are low compared to the prior examination. Interstitial and alveolar opacitie s are present in the mid and lower lung feldman with relative sparing of each apex. Airspace disease i s both central and peripheral in distribution. Trachea is in the midline. Heart size is upper normal, accentuated by shallow inspiration portable technique. No large pleural effusion and no pneumothorax. No acute bony abnormality seen. No acute aortic findi ngs suspected. IMPRESSION: Limited portable study showing bilateral interstitial and alveolar opacities without car diomegaly. COVID status for the patient is unknown. Chest film findings would be consistent with a COVID-19 pneu monia if this matches history and testing. Non COVID-19 pneumonia etiologies are possible as well. Findings are not classic for failure/ volume overload of these etiologies are possible as well.
--- NOTE | 2021-06-07 18:21 | P.HP ---
Certification for Inpatient Patient admitted to: Inpatient With expected LOS: >2 Midnights Patient will require the following post-hospital care: Home Health Services Practitioner: I am a practitioner with admitting privileges, knowledge of patient current condition, hospital course, and medical plan of care. Services: Services provided to patient in accordance with Admission requirements found in Title 42 Section 412.3 of the Code of Federal Regulations Patient History Date of Service: 06/07/21 Primary Care Provider: Zuleika Reason for admission: Covid History of Present Illness: Office patient of [employer]. She and most of her family have caught covid. She had called late last week. Was started on the I-mask protochol. Had asked her to call me if she got short of breath. She had been short of breath for the last few days. However she got worse today and her brought her to the ER. I had seen the patientas she was coming in. She was having difficulty sleeping. Was 80% on Room air. Was put on oxygen and started on steroids in the ER she is currently resting comfortably. Allergies fenoprofen [From Nalfon] Allergy (Unverified 07/31/17 17:25) Unknown Review of Systems 10-point ROS is otherwise unremarkable Respiratory: Shortness of Breath Physical Examination - Physical Exam General: Alert, In no apparent distress HEENT: Atraumatic, PERRLA, Mucous membr. moist/pink, EOMI, Sclerae nonicteric Neck: Supple, 2+ carotid pulse no bruit, No LAD, Without JVD or thyroid abnormality Respiratory: Crackles/rales Cardiovascular: Regular rate/rhythm, Normal S1 S2 Gastrointestinal: Normal bowel sounds, No tenderness Musculoskeletal: No tenderness Integumentary: No rashes Neurological: Normal gait, Normal speech, Normal strength at 5/5 x4 extr, Normal tone, Normal affect Lymphatics: No axilla or inguinal lymphadenopathy - Studies Laboratory Data (last 24 hrs) 06/07/21 16:04: PT 12.0, INR 1.04, APTT 21.7 L 06/07/21 16:04: WBC 10.20, Hgb 11.9 L, Hct 35.0 L, Plt Count 379 06/07/21 16:04: Sodium 128 L, Potassium 3.4 L, BUN 23 H, Creatinine 0.67, Glucose 275 H, Total Bilirubin 0.7, AST 20, ALT 18, Alkaline Phosphatase 73 Assessment and Plan - Problems (Diagnosis) (1) COVID-19 Current Visit: Yes Status: Acute Plan: will admit to the hospital. Consult Dr. Newsome. Will start the patient on the I-math protochol. Will see if she recovers in a few day. Hopefully we can send her home with home o2 (2) HTN (hypertension) Current Visit: Yes Status: Chronic Plan: restart the home dose of lisinopril. Qualifiers: Hypertension type: primary hypertension Qualified Code(s): I10 - Essential (primary) hypertension (3) Hyperlipidemia associated with type 2 diabetes mellitus Current Visit: Yes Status: Chronic Plan: will restart lisinopril. Sliding scale insulin. Will start dose of levemir while in the hospital. Discharge Plan: Home Plan to discharge in: Greater than 2 days - Advance Directives Does patient have a Living Will: No Does patient have a Durable POA for Healthcare: No - Code Status/Comfort Care Code Status Assessed: Yes Code Status: Full Code Physician Review: Patient Assessed, Agree with Above Assessment and Plan Critical Care: No Time Spent Managing Pts Care (In Minutes): 70
[2021-06-07] MEDS ORDERED: GLUCAGON 1 MG/VIAL IM PRN ×2 (18:22→19:26)
[2021-06-07] MEDS ORDERED: D50W 25 GM/50 ML SYRINGE IV PRN ×2 (18:22→19:26)
[2021-06-07] MEDS ORDERED: MELATONIN 5 MG TABLET PO PRN (19:26)
[2021-06-07] MEDS: APIXABAN 2.5 MG TABLET PO SCH (20:46)
[2021-06-07] MEDS: ASCORBIC ACID 500 MG TABLET PO SCH (20:46)
[2021-06-07] MEDS: ATORVASTATIN 40 MG TAB PO SCH (20:47)
[2021-06-07] MEDS: FAMOTIDINE 20 MG/2 ML VIAL IV SCH (20:48)
[2021-06-07] MEDS: INSULIN -REGULAR HUMAN 50 UNIT/0.5 ML ML SQ SCH (20:48)
[2021-06-07] MEDS: METHYLPREDNISOLONE 40 MG INJ IV SCH (20:49)
[2021-06-07] MEDS ORDERED: INSULIN GLARGINE 100 UNITS/ML SQ SCH (21:00)
[2021-06-07 22:47] LABS: Blood Morphology Comment NOT SEEN (NOT SEEN); Platelet Estimate ADEQ
[2021-06-08 06:05] LABS: Absolute Lymphocytes (CBC) 0.5 K/uL (0.7-4.9); Basophils % 0.2 % (0-1.3); Hematocrit 36.7 % (36.0-45.0); Lymphocytes % 7.3 % (15.3-44.8); MPV 7.6 fL (7.6-11.3); RBC Red Blood Cell Count 4.24 M/uL (3.86-4.86)
[2021-06-08 06:49] LABS: Ferritin 785.7 ng/mL (8-388); Potassium 3.8 mmol/L (3.5-5.1)
[2021-06-08] MEDS ORDERED: PNEUMOCOCCAL VACCINE 0.5 ML IMVAC ONE (08:00)
[2021-06-08] MEDS ORDERED: INFLUENZA VACCINE (for 6+ mo) 0.5 ML DOSE IMVAC ONE (08:00)
--- NOTE | 2021-06-08 08:04 | P.CNS ---
Date of Consult: 06/08/21 Primary Care Provider: Zuleika Chief Complaint: Covid History of Present Illness: Patient is 61 years of AE admitted with humphries virus pneumonia currently she is on high-flow oxygen still has significant desaturation with brought to the emergency room Allergies fenoprofen [From Nalfon] Allergy (Severe, Verified 06/07/21 20:16) Unknown Home Medications: Acetaminophen with Codeine [Acetaminophen-Cod #2 Tablet] 1 each PO PRN 06/07/21 Clindamycin HCl 150 mg PO BID 06/07/21 Glimepiride 2 mg PO BID 06/07/21 Glimepiride 4 mg PO DAILY 06/07/21 Metformin ER [Glucophage ER*] 500 mg PO BID 06/07/21 Nitrofuran Macro [Macrobid] 100 mg PO BID 06/07/21 Phenazopyridine HCl [Pyridium] 200 mg PO TID 06/07/21 Smz./Tmp. [Bactrim Ds 800 MG/160 MG*] 800 tab PO Q12HP 06/07/21 - Past Medical/Surgical History -: Diabetes - Social History Place of Residence: Home Review of Systems General: Weakness Respiratory: Cough, Shortness of Breath Physical Examination Temp Pulse Resp BP Pulse Ox 97 F 78 26 H 143/75 H 91 06/08/21 04:00 06/08/21 04:00 06/08/21 04:00 06/08/21 04:00 06/08/21 04:00 General: Alert, Moderate distress Laboratory Data (last 24 hrs) 06/07/21 16:04: PT 12.0, INR 1.04, APTT 21.7 L 06/07/21 16:04: WBC 10.20, Hgb 11.9 L, Hct 35.0 L, Plt Count 379 06/07/21 16:04: Sodium 128 L, Potassium 3.4 L, BUN 23 H, Creatinine 0.67, Glucose 275 H, Total Bilirubin 0.7, AST 20, ALT 18, Alkaline Phosphatase 73 - Problems (1) COVID-19 Current Visit: Yes Status: Acute Plan: Patient is 61 years of age admitted with humphries virus pneumonia had [facility], pharmacy Consul for bar set and have continue with steroids agree with full anticoagulation patient is on high-flow at low-dose Lasix labs is chest x-ray reviewed CT scan shows diffuse bilateral pneumonia
[2021-06-08] MEDS: ASCORBIC ACID 500 MG TABLET PO SCH ×2 (08:15→20:12)
[2021-06-08] MEDS: APIXABAN 2.5 MG TABLET PO SCH ×2 (08:15→20:12)
[2021-06-08] MEDS: INSULIN -REGULAR HUMAN 50 UNIT/0.5 ML ML SQ SCH ×4 (08:15→20:15)
[2021-06-08] MEDS: ZINC SULFATE 220 MG CAP PO SCH (08:15)
[2021-06-08] MEDS: lisinopriL 20 MG TAB PO SCH (08:15)
[2021-06-08] MEDS: METHYLPREDNISOLONE 40 MG INJ IV SCH ×2 (08:15→20:12)
[2021-06-08] MEDS: FAMOTIDINE 20 MG/2 ML VIAL IV SCH (08:15)
[2021-06-08] MEDS: VITAMIN D 5,000 UNIT CAP PO SCH (08:15)
[2021-06-08] MEDS: ASPIRIN EC 81 MG TAB PO SCH (08:17)
[2021-06-08] MEDS: FUROSEMIDE 20 MG TABLET PO SCH (08:17)
[2021-06-08] MEDS: SITAGLIPTIN PHOS 100 MG TAB PO SCH (08:17)
--- NOTE | 2021-06-08 12:25 | P.PN ---
Subjective Date of Service: 06/08/21 Primary Care Provider: Zuleika Chief Complaint: Covid Subjective: Improving (stable on high flow oxygen) Review of Systems 10-point ROS is otherwise unremarkable ENT: Other (hearing loss) Respiratory: Shortness of Breath Physical Examination - Vital Signs Temperature: 97.8 F Blood Pressure: 148/77 Pulse: 85 Respirations: 29 Pulse Ox (%): 86 - Physical Exam General: Alert, In no apparent distress HEENT: Atraumatic, PERRLA, EOMI Neck: Supple, JVD not distended Respiratory: Clear to auscultation bilaterally, Normal air movement Cardiovascular: Regular rate/rhythm, Normal S1 S2 Gastrointestinal: Normal bowel sounds, No tenderness Musculoskeletal: No tenderness Integumentary: No rashes Neurological: Normal speech, Normal tone, Normal affect Lymphatics: No axilla or inguinal lymphadenopathy - Studies Laboratory Data (last 24 hrs) 06/07/21 16:04: PT 12.0, INR 1.04, APTT 21.7 L 06/07/21 16:04: WBC 10.20, Hgb 11.9 L, Hct 35.0 L, Plt Count 379 06/07/21 16:04: Sodium 128 L, Potassium 3.4 L, BUN 23 H, Creatinine 0.67, Glucose 275 H, Total Bilirubin 0.7, AST 20, ALT 18, Alkaline Phosphatase 73 Assessment & Plan - Problems (Diagnosis) (1) COVID-19 Current Visit: Yes Status: Acute Plan: will admit to the hospital. Consult Dr. Newsome. Will start the patient on the I-math protochol. Will see if she recovers in a few day. Hopefully we can send her home with home o2 (2) HTN (hypertension) Current Visit: Yes Status: Chronic Plan: restart the home dose of lisinopril. Qualifiers: Hypertension type: primary hypertension Qualified Code(s): I10 - Essential (primary) hypertension (3) Hyperlipidemia associated with type 2 diabetes mellitus Current Visit: Yes Status: Chronic Plan: . Sliding scale insulin. Will start dose of levemir while in the hospital. started on januva Discharge Plan: Home Plan to discharge in: Greater than 2 days - Code Status/Comfort Care Code Status Assessed: No Physician Review: Patient Assessed, Agree with Above Assessment and Plan Critical Care: No Time Spent Managing Pts Care (In Minutes): 2
[2021-06-08] MEDS ORDERED: REMDESIVIR (EUA) 200 MG in NA CHLORIDE 0.9% 250 ML IV ONE (14:30)
--- NOTE | 2021-06-08 16:54 | EKG ---
Test Date: 2021-06-07 Test Time: 15:59:19 Retail Account Executive: MARIA LUISA MEASUREMENT RESULTS: Intervals: Rate: 78 DC: 146 QRSD: 86 QT: 398 QTc: 453 [place]: P: 61 DC: 146 QRS: -10 T: 49 INTERPRETIVE STATEMENTS: Normal sinus rhythm Normal ECG Compared to ECG 07/31/2017 13:19:23 No significant changes Electronically Signed On 06-08-21 16:51:16 YARDER BOSS by Latrell Dean
[2021-06-08] MEDS ORDERED: INSULIN -REGULAR HUMAN 50 UNIT/0.5 ML ML SQ ONE (19:39)
[2021-06-08] MEDS: ATORVASTATIN 40 MG TAB PO SCH (20:12)
[2021-06-08] MEDS: FAMOTIDINE 20 MG TAB PO SCH (20:14)
[2021-06-08] MEDS ORDERED: INSULIN GLARGINE 100 UNIT/ML SQ SCH (21:00)
[2021-06-09 04:57] LABS: Absolute Lymphocytes (CBC) 0.6 K/uL (0.7-4.9); Basophils % 0.7 % (0-1.3); Hematocrit 34.6 % (36.0-45.0); Lymphocytes % 4.3 % (15.3-44.8); MPV 7.6 fL (7.6-11.3); RBC Red Blood Cell Count 4.04 M/uL (3.86-4.86)
[2021-06-09 05:11] LABS: ALT/SGPT 15 U/L (12-78); AST/SGOT 17 U/L (15-37); Albumin 2.4 g/dL (3.4-5.0); Alkaline Phosphatase 74 U/L (45-117); BUN Blood Urea Nitrogen 27 mg/dL (7-18); Bicarbonate 25 mmol/L (21-32); Bilirubin Direct 0.2 mg/dL (0-0.2); Bilirubin Total 0.5 mg/dL (0.2-1.0); Glucose Level 292 mg/dL (74-106); Potassium 3.6 mmol/L (3.5-5.1); Protein, Total 6.5 g/dL (6.4-8.2); Sodium Level 133 mmol/L (136-145)
[2021-06-09] MEDS ORDERED: WATER FOR INJ,STERILE 10 ML IM PRN (05:25)
[2021-06-09] MEDS: ZIPRASIDONE MESYLA 20 MG/VIAL IM PRN (05:49)
[2021-06-09] MEDS ORDERED: INSULIN GLARGINE 100 UNITS/ML SQ ONE (07:30)
[2021-06-09] MEDS: INSULIN -REGULAR HUMAN 50 UNIT/0.5 ML ML SQ SCH ×3 (08:45→16:59)
[2021-06-09] MEDS: REMDESIVIR (EUA) 100 MG in NA CHLORIDE 0.9% 250 ML IV SCH (08:46)
[2021-06-09] MEDS: lisinopriL 20 MG TAB PO SCH (08:46)
[2021-06-09] MEDS: ASPIRIN EC 81 MG TAB PO SCH (08:46)
[2021-06-09] MEDS: METHYLPREDNISOLONE 40 MG INJ IV SCH ×2 (08:46→20:47)
[2021-06-09] MEDS: SITAGLIPTIN PHOS 100 MG TAB PO SCH (08:46)
[2021-06-09] MEDS: APIXABAN 2.5 MG TABLET PO SCH (08:47)
[2021-06-09] MEDS: ASCORBIC ACID 500 MG TABLET PO SCH ×2 (08:47→20:47)
[2021-06-09] MEDS: ZINC SULFATE 220 MG CAP PO SCH (08:47)
[2021-06-09] MEDS: FAMOTIDINE 20 MG TAB PO SCH ×2 (08:47→20:47)
[2021-06-09] MEDS: VITAMIN D 5,000 UNIT CAP PO SCH (08:47)
[2021-06-09] MEDS: FUROSEMIDE 20 MG TABLET PO SCH ×2 (08:47→12:41)
[2021-06-09] MEDS ORDERED: INSULIN GLARGINE 100 UNIT/ML SQ ONE (10:00)
--- NOTE | 2021-06-09 11:40 | P.PN ---
Subjective Date of Service: 06/09/21 Primary Care Provider: Zuleika Chief Complaint: Covid Subjective: Improving (Patient is improving still requiring high concentration of oxygen desaturation minimal exertion) Review of Systems General: Weakness Respiratory: Cough, Shortness of Breath Physical Examination - Vital Signs Temperature: 97.2 F Blood Pressure: 148/83 Pulse: 71 Respirations: 26 Pulse Ox (%): 95 - Physical Exam General: Alert, Mild distress Assessment & Plan - Problems (Diagnosis) (1) COVID-19 Current Visit: Yes Status: Acute Plan: Respiratory failure from humphries virus patient seems to be improving clinically still requiring high concentrations of oxygen eating and drinking on 100% FiO2 continue titrate down to sat of 90% patient does not qualify for about certain nebs CRP is declined reduce the dose of anticoagulation add Lasix Physician Review: Patient Assessed, Agree with Above Assessment and Plan
[2021-06-09] MEDS ORDERED: D50W 25 GM/50 ML SYRINGE IV PRN ×2 (12:42→17:51)
[2021-06-09] MEDS ORDERED: GLUCAGON 1 MG/VIAL IM PRN ×2 (12:42→17:51)
--- NOTE | 2021-06-09 12:44 | P.PN ---
Subjective Date of Service: 06/09/21 Primary Care Provider: Zuleika Chief Complaint: Covid Subjective: No new changes Review of Systems Respiratory: Shortness of Breath Physical Examination - Vital Signs Temperature: 97.2 F Blood Pressure: 148/83 Pulse: 71 Respirations: 26 Pulse Ox (%): 95 - Physical Exam General: Alert, In no apparent distress HEENT: Atraumatic, PERRLA, EOMI Neck: Supple, JVD not distended Respiratory: Clear to auscultation bilaterally, Normal air movement Cardiovascular: Regular rate/rhythm, Normal S1 S2 Gastrointestinal: Normal bowel sounds, No tenderness Musculoskeletal: No tenderness Integumentary: No rashes Neurological: Normal speech, Normal tone, Normal affect Lymphatics: No axilla or inguinal lymphadenopathy Assessment & Plan - Problems (Diagnosis) (1) COVID-19 Current Visit: Yes Status: Acute Plan: will admit to the hospital. Consult Dr. Newsome. Will start the patient on the I-math protochol. Will see if she recovers in a few day. Hopefully we can send her home with home o2 (2) HTN (hypertension) Current Visit: Yes Status: Chronic Plan: restart the home dose of lisinopril. Qualifiers: Hypertension type: primary hypertension Qualified Code(s): I10 - Essential (primary) hypertension (3) Hyperlipidemia associated with type 2 diabetes mellitus Current Visit: Yes Status: Chronic Plan: . Sliding scale insulin. Will start dose of levemir while in the hospital. will keep her on lantus. Start the patient on metformin 500mg po qday Discharge Plan: Home Plan to discharge in: Greater than 2 days - Code Status/Comfort Care Code Status Assessed: No Physician Review: Patient Assessed, Agree with Above Assessment and Plan Critical Care: No Time Spent Managing Pts Care (In Minutes): 25
[2021-06-09] MEDS: METFORMIN HCL 500 MG TAB PO SCH (17:15)
[2021-06-09] MEDS ORDERED: POTASSIUM CL SA 10 MEQ TAB PO ONE (17:27)
[2021-06-09] MEDS ORDERED: NA CHLORIDE 0.9% 500 ML IV ONE (17:56)
[2021-06-09] MEDS ORDERED: NA CHLORIDE 0.9% 1,000 ML ONE (18:00)
[2021-06-09] MEDS: NA CHLORIDE 0.9% 1,000 ML IV SCH ×2 (18:00→23:54)
[2021-06-09] MEDS ORDERED: INSULIN -REGULAR HUMAN 100 UNIT in NA CHLORIDE 0.9% 100 ML IV SCH (18:00)
[2021-06-09] MEDS: ATORVASTATIN 40 MG TAB PO SCH (20:47)
[2021-06-10 04:58] LABS: Absolute Lymphocytes (CBC) 0.5 K/uL (0.7-4.9); Basophils % 0.5 % (0-1.3); Hematocrit 32.7 % (36.0-45.0); Lymphocytes % 3.3 % (15.3-44.8); MPV 7.5 fL (7.6-11.3); RBC Red Blood Cell Count 3.82 M/uL (3.86-4.86)
[2021-06-10 05:21] LABS: Albumin 2.2 g/dL (3.4-5.0); Bilirubin Direct 0.2 mg/dL (0-0.2); Bilirubin Total 0.6 mg/dL (0.2-1.0); C-Reactive Protein 10.3 mg/L (<3.00); Ferritin 496.4 ng/mL (8-388); Potassium 3.6 mmol/L (3.5-5.1); Protein, Total 5.7 g/dL (6.4-8.2)
[2021-06-10] MEDS ORDERED: GLUCAGON 1 MG/VIAL IM PRN (05:56)
[2021-06-10] MEDS ORDERED: D50W 25 GM/50 ML SYRINGE IV PRN (05:56)
[2021-06-10] MEDS ORDERED: POTASSIUM CL SA 10 MEQ TAB PO ONE ×2 (06:30→08:00)
[2021-06-10] MEDS ORDERED: INSULIN -REGULAR HUMAN 50 UNIT/0.5 ML ML SQ SCH (07:30)
[2021-06-10] MEDS: INSULIN GLARGINE 100 UNIT/ML SQ SCH (08:33)
[2021-06-10] MEDS: INSULIN -REGULAR HUMAN 50 UNIT/0.5 ML ML SQ SCH ×4 (08:35→20:17)
[2021-06-10] MEDS: METHYLPREDNISOLONE 40 MG INJ IV SCH ×2 (08:36→20:16)
[2021-06-10] MEDS: REMDESIVIR (EUA) 100 MG in NA CHLORIDE 0.9% 250 ML IV SCH (08:36)
[2021-06-10] MEDS: VITAMIN D 5,000 UNIT CAP PO SCH (08:36)
[2021-06-10] MEDS: FAMOTIDINE 20 MG TAB PO SCH ×2 (08:36→20:16)
[2021-06-10] MEDS: ASPIRIN EC 81 MG TAB PO SCH (08:37)
[2021-06-10] MEDS: FUROSEMIDE 20 MG TABLET PO SCH ×2 (08:37→08:38)
[2021-06-10] MEDS: SITAGLIPTIN PHOS 100 MG TAB PO SCH (08:37)
[2021-06-10] MEDS: METFORMIN HCL 500 MG TAB PO SCH ×2 (08:37→17:24)
[2021-06-10] MEDS: ZINC SULFATE 220 MG CAP PO SCH (08:37)
[2021-06-10] MEDS: RIVAROXABAN 10 MG TABLET PO SCH (08:37)
[2021-06-10] MEDS: ASCORBIC ACID 500 MG TABLET PO SCH (08:37)
[2021-06-10] MEDS: lisinopriL 20 MG TAB PO SCH (08:37)
--- NOTE | 2021-06-10 11:22 | P.PN ---
Subjective Date of Service: 06/10/21 Primary Care Provider: Zuleika Chief Complaint: Covid Subjective: Improving (decreased oxygen requirements today) Review of Systems 10-point ROS is otherwise unremarkable Respiratory: Shortness of Breath Physical Examination - Vital Signs Temperature: 96.5 F Blood Pressure: 104/86 Pulse: 82 Respirations: 17 Pulse Ox (%): 87 - Physical Exam General: Alert, In no apparent distress HEENT: Atraumatic, PERRLA, EOMI Neck: Supple, JVD not distended Respiratory: Clear to auscultation bilaterally, Normal air movement Cardiovascular: Regular rate/rhythm, Normal S1 S2 Gastrointestinal: Normal bowel sounds, No tenderness Musculoskeletal: No tenderness Integumentary: No rashes Neurological: Normal speech, Normal tone, Normal affect Lymphatics: No axilla or inguinal lymphadenopathy Assessment & Plan - Problems (Diagnosis) (1) COVID-19 Current Visit: Yes Status: Acute Plan: will admit to the hospital. Consult Dr. Newsome. Will start the patient on the I-math protochol. Will see if she recovers in a few day. Hopefully we can send her home with home o2 06/10 Patient is getting some confusion at night . Possible covid encepalopathy (2) HTN (hypertension) Current Visit: Yes Status: Chronic Plan: restart the home dose of lisinopril. Qualifiers: Hypertension type: primary hypertension Qualified Code(s): I10 - Essential (primary) hypertension (3) Hyperlipidemia associated with type 2 diabetes mellitus Current Visit: Yes Status: Chronic Plan: . Sliding scale insulin. Will start dose of levemir while in the hospital. will keep her on lantus. Start the patient on metformin 500mg po qday Discharge Plan: Home Plan to discharge in: Greater than 2 days - Code Status/Comfort Care Code Status Assessed: No Physician Review: Patient Assessed, Agree with Above Assessment and Plan Critical Care: No Time Spent Managing Pts Care (In Minutes): 20
--- NOTE | 2021-06-10 12:13 | P.PN ---
Subjective Date of Service: 06/10/21 Primary Care Provider: Zuleika Chief Complaint: Covid Subjective: Improving (Patient is improving oxygen requirements declining eating and drinking) Review of Systems General: Weakness Respiratory: Shortness of Breath Physical Examination - Vital Signs Temperature: 96.5 F Blood Pressure: 104/86 Pulse: 82 Respirations: 17 Pulse Ox (%): 87 - Physical Exam General: Alert, Cooperative Assessment & Plan - Problems (Diagnosis) (1) COVID-19 Current Visit: Yes Status: Acute Plan: Respiratory failure patient is gradually improving labs reviewed white count is mildly elevated patient is on 15 L medications reviewed reduce Solu-Medrol to 40 mg p.o. b.i.d. continue with all other medications Dc ascorbate gases maintain sat around 90% CRP is low and has declined significantly Physician Review: Patient Assessed, Agree with Above Assessment and Plan
[2021-06-10] MEDS: ATORVASTATIN 40 MG TAB PO SCH (20:16)
[2021-06-11] MEDS: ZIPRASIDONE MESYLA 20 MG/VIAL IM PRN (05:23)
[2021-06-11 05:43] LABS: Albumin 2.4 g/dL (3.4-5.0); Bilirubin Direct 0.3 mg/dL (0-0.2); Bilirubin Total 0.7 mg/dL (0.2-1.0); C-Reactive Protein 7.79 mg/L (<3.00); Ferritin 396.6 ng/mL (8-388); Protein, Total 6.2 g/dL (6.4-8.2)
[2021-06-11] MEDS: INSULIN GLARGINE 100 UNIT/ML SQ SCH (08:35)
[2021-06-11] MEDS: INSULIN -REGULAR HUMAN 50 UNIT/0.5 ML ML SQ SCH ×4 (08:35→20:41)
[2021-06-11] MEDS: METFORMIN HCL 500 MG TAB PO SCH ×2 (08:36→16:39)
[2021-06-11] MEDS: FUROSEMIDE 20 MG TABLET PO SCH ×2 (08:36→08:37)
[2021-06-11] MEDS: RIVAROXABAN 10 MG TABLET PO SCH (08:36)
[2021-06-11] MEDS: ASPIRIN EC 81 MG TAB PO SCH (08:36)
[2021-06-11] MEDS: METHYLPREDNISOLONE 40 MG INJ IV SCH ×2 (08:36→20:42)
[2021-06-11] MEDS: ZINC SULFATE 220 MG CAP PO SCH (08:36)
[2021-06-11] MEDS: lisinopriL 20 MG TAB PO SCH (08:37)
[2021-06-11] MEDS: SITAGLIPTIN PHOS 100 MG TAB PO SCH (08:37)
[2021-06-11] MEDS: FAMOTIDINE 20 MG TAB PO SCH ×2 (08:37→20:42)
[2021-06-11] MEDS: VITAMIN D 5,000 UNIT CAP PO SCH (08:38)
[2021-06-11] MEDS: REMDESIVIR (EUA) 100 MG in NA CHLORIDE 0.9% 250 ML IV SCH (09:05)
[2021-06-11] MEDS: ATORVASTATIN 40 MG TAB PO SCH (20:42)
[2021-06-12 04:54] LABS: Absolute Lymphocytes (CBC) 0.5 K/uL (0.7-4.9); Basophils % 0.2 % (0-1.3); Hematocrit 38.5 % (36.0-45.0); Lymphocytes % 3.3 % (15.3-44.8); MPV 7.3 fL (7.6-11.3); RBC Red Blood Cell Count 4.48 M/uL (3.86-4.86)
[2021-06-12 05:09] LABS: Albumin 2.4 g/dL (3.4-5.0); BUN Blood Urea Nitrogen 22 mg/dL (7-18); Bicarbonate 31 mmol/L (21-32); Bilirubin Direct 0.3 mg/dL (0-0.2); Bilirubin Total 0.8 mg/dL (0.2-1.0); C-Reactive Protein 6.09 mg/L (<3.00); Ferritin 361.4 ng/mL (8-388); Ferritin 368.8 ng/mL (8-388); Glucose Level 138 mg/dL (74-106); Potassium 3.6 mmol/L (3.5-5.1); Protein, Total 6.2 g/dL (6.4-8.2); Sodium Level 136 mmol/L (136-145)
[2021-06-12 05:20] LABS: Platelet Estimate ADEQ
[2021-06-12 05:21] LABS: Blood Morphology Comment NOT SEEN (NOT SEEN)
[2021-06-12] MEDS ORDERED: POTASSIUM CL SA 10 MEQ TAB PO ONE (08:00)
[2021-06-12] MEDS: INSULIN -REGULAR HUMAN 50 UNIT/0.5 ML ML SQ SCH ×4 (08:13→20:32)
[2021-06-12] MEDS: ASPIRIN EC 81 MG TAB PO SCH (08:14)
[2021-06-12] MEDS: METHYLPREDNISOLONE 40 MG INJ IV SCH ×2 (08:14→20:32)
[2021-06-12] MEDS: FUROSEMIDE 20 MG TABLET PO SCH (08:15)
[2021-06-12] MEDS: lisinopriL 20 MG TAB PO SCH (08:15)
[2021-06-12] MEDS: RIVAROXABAN 10 MG TABLET PO SCH (08:15)
[2021-06-12] MEDS: METFORMIN HCL 500 MG TAB PO SCH ×2 (08:15→16:57)
[2021-06-12] MEDS: FAMOTIDINE 20 MG TAB PO SCH ×2 (08:15→20:32)
[2021-06-12] MEDS: ZINC SULFATE 220 MG CAP PO SCH (08:16)
[2021-06-12] MEDS: SITAGLIPTIN PHOS 100 MG TAB PO SCH (08:16)
[2021-06-12] MEDS: VITAMIN D 5,000 UNIT CAP PO SCH (08:16)
[2021-06-12] MEDS: REMDESIVIR (EUA) 100 MG in NA CHLORIDE 0.9% 250 ML IV SCH (08:34)
[2021-06-12] MEDS: INSULIN GLARGINE 100 UNIT/ML SQ SCH (09:00)
--- NOTE | 2021-06-12 09:30 | P.PN ---
Subjective Date of Service: 06/11/21 Patient clinically in no changes. Doing much better. Symptoms are improving. Review of Systems 10-point ROS is otherwise unremarkable Physical Examination - Vital Signs Temperature: 97.6 F Blood Pressure: 146/81 Pulse: 77 Respirations: 15 Pulse Ox (%): 91 - Physical Exam General: Alert, In no apparent distress HEENT: Atraumatic, PERRLA, EOMI Neck: Supple, JVD not distended Respiratory: Clear to auscultation bilaterally, Normal air movement Cardiovascular: Regular rate/rhythm, Normal S1 S2 Gastrointestinal: Normal bowel sounds, No tenderness Musculoskeletal: No tenderness Integumentary: No rashes Neurological: Normal speech, Normal tone, Normal affect Lymphatics: No axilla or inguinal lymphadenopathy - Studies Medications List Reviewed: Yes Assessment & Plan - Problems (Diagnosis) (1) COVID-19 Current Visit: Yes Status: Acute (2) HTN (hypertension) Current Visit: Yes Status: Chronic Qualifiers: Hypertension type: primary hypertension Qualified Code(s): I10 - Essential (primary) hypertension (3) Hyperlipidemia associated with type 2 diabetes mellitus Current Visit: Yes Status: Chronic - Plan 1. Continue with IV steroids 2. Monitor inflammatory markers 3. Weaning off of high-flow oxygen 4. O2 per protocol arrange for home oxygen 5. Pulmonary consultation appreciated 6. Continue with supportive care 7. GI and DVT prophylaxis Discharge Plan: Home Plan to discharge in: Greater than 2 days - Advance Directives Does patient have a Living Will: No Does patient have a Durable POA for Healthcare: No - Code Status/Comfort Care Code Status: Full Code Physician Review: Patient Assessed, Agree with Above Assessment and Plan Critical Care: No Time Spent Managing PTS Care (In Minutes): 35
--- NOTE | 2021-06-12 09:30 | P.PN ---
Date of Service: 06/12/21 Subjective Still get a little tachypneic gone ambulating. However oxygen requirements have gone down to 6 L. Arrange for home oxygen. Review of Systems 10-point ROS is otherwise unremarkable Physical Examination - Vital Signs Reviewed - Physical Exam General: Alert, In no apparent distress Respiratory: Clear to auscultation bilaterally, Normal air movement Cardiovascular: Regular rate/rhythm, Normal S1 S2 Gastrointestinal: Normal bowel sounds, No tenderness Neurological: Normal speech, Normal tone, Normal affect Assessment & Plan - Problems (Diagnosis) (1) COVID-19 Current Visit: Yes Status: Acute (2) HTN (hypertension) Current Visit: Yes Status: Chronic Qualifiers: Hypertension type: primary hypertension Qualified Code(s): I10 - Essential (primary) hypertension (3) Hyperlipidemia associated with type 2 diabetes mellitus Current Visit: Yes Status: Chronic - Plan Continue with plan of care as mentioned below: 1. Continue with IV steroids; titrate downward 2. Inflammatory markers are stable 3. Weaning off of high-flow oxygen 4. O2 per protocol arrange for home oxygen; 5. Pulmonary consultation appreciated 6. Continue with supportive care 7. GI and DVT prophylaxis
[2021-06-12] MEDS ORDERED: ONDANSETRON 4 MG/2 ML VIAL IV PRN (13:57)
[2021-06-12] MEDS: ATORVASTATIN 40 MG TAB PO SCH (20:32)
[2021-06-13 04:46] VITALS: BMI 32.8
[2021-06-13 05:58] LABS: Absolute Lymphocytes (CBC) 1.2 K/uL (0.7-4.9); Basophils % 0.3 % (0-1.3); Hematocrit 40.3 % (36.0-45.0); Lymphocytes % 5.6 % (15.3-44.8); MPV 7.5 fL (7.6-11.3); RBC Red Blood Cell Count 4.67 M/uL (3.86-4.86)
[2021-06-13 06:10] LABS: BUN Blood Urea Nitrogen 23 mg/dL (7-18); Bicarbonate 28 mmol/L (21-32); Glucose Level 167 mg/dL (74-106); Magnesium 1.7 mg/dL (1.8-2.4); Phosphorus 2.8 mg/dL (2.5-4.9); Potassium 3.8 mmol/L (3.5-5.1); Sodium Level 133 mmol/L (136-145)
[2021-06-13] MEDS: INSULIN -REGULAR HUMAN 50 UNIT/0.5 ML ML SQ SCH ×4 (07:30→20:56)
[2021-06-13] MEDS: INSULIN GLARGINE 100 UNIT/ML SQ SCH (08:00)
[2021-06-13] MEDS ORDERED: POTASSIUM CL SA 10 MEQ TAB PO ONE (08:00)
[2021-06-13] MEDS: RIVAROXABAN 10 MG TABLET PO SCH (08:24)
[2021-06-13] MEDS: SITAGLIPTIN PHOS 100 MG TAB PO SCH (08:24)
[2021-06-13] MEDS: ASPIRIN EC 81 MG TAB PO SCH (08:24)
[2021-06-13] MEDS: METFORMIN HCL 500 MG TAB PO SCH ×2 (08:25→16:29)
[2021-06-13] MEDS: FUROSEMIDE 20 MG TABLET PO SCH (08:25)
[2021-06-13] MEDS: lisinopriL 20 MG TAB PO SCH (08:25)
[2021-06-13] MEDS: ZINC SULFATE 220 MG CAP PO SCH (08:25)
[2021-06-13] MEDS: FAMOTIDINE 20 MG TAB PO SCH ×2 (08:25→20:57)
[2021-06-13] MEDS: METHYLPREDNISOLONE 40 MG INJ IV SCH (08:25)
[2021-06-13] MEDS: VITAMIN D 5,000 UNIT CAP PO SCH (08:25)
[2021-06-13 10:04] LABS: Blood Morphology Comment NOT SEEN (NOT SEEN); Platelet Estimate INCR
--- NOTE | 2021-06-13 10:43 | P.PN ---
Subjective Date of Service: 06/13/21 Primary Care Provider: Zuleika Chief Complaint: Covid Subjective: Improving (Patient is doing well oxygen has been weaned down eating and drinking hemodynamically stable) Review of Systems General: Weakness Respiratory: Shortness of Breath Physical Examination - Vital Signs Temperature: 97.1 F Blood Pressure: 154/81 Pulse: 98 Respirations: 21 Pulse Ox (%): 85 - Physical Exam General: Alert, Cooperative - Studies Microbiology Data (last 24 hrs): 06/07/21 16:04 Blood - Blood Aerobic Blood Culture - Final No growth in 5 days. 06/07/21 16:04 Blood - Blood Anaerobic Blood Culture - Final No growth in 5 days. 06/07/21 15:55 Blood - Blood Aerobic Blood Culture - Final No growth in 5 days. 06/07/21 15:55 Blood - Blood Anaerobic Blood Culture - Final No growth in 5 days. Medications List Reviewed: Yes Assessment & Plan - Problems (Diagnosis) (1) COVID-19 Current Visit: Yes Status: Acute Plan: Patient is improving doing really well eating and drinking hemodynamically stable white count is mildly elevated O fully continue to wean possible discharge in a few days reduce steroids to prednisone 20 mg p.o. twice a day Physician Review: Patient Assessed, Agree with Above Assessment and Plan
--- NOTE | 2021-06-13 17:02 | P.PN ---
Date of Service: 06/13/21 Subjective Doing better; no new complaints. However, oxygen requirements have gone down to 5L. Arrange for home oxygen. Review of Systems 10-point ROS is otherwise unremarkable Physical Examination - Vital Signs Reviewed - Physical Exam General: Alert, In no apparent distress Respiratory: Clear to auscultation bilaterally, Normal air movement Cardiovascular: Regular rate/rhythm, Normal S1 S2 Gastrointestinal: Normal bowel sounds, No tenderness Neurological: No focal deficits Assessment & Plan - Problems (Diagnosis) (1) COVID-19 Current Visit: Yes Status: Acute (2) HTN (hypertension) Current Visit: Yes Status: Chronic Hypertension type: primary hypertension Qualified Code(s): I10 - Essential (primary) hypertension (3) Hyperlipidemia associated with type 2 diabetes mellitus Current Visit: Yes Status: Chronic - Plan Continue with plan of care as mentioned below: 1. Continue with IV steroids; titrate downward; change to oral steroids 2. Inflammatory markers are stable 3. Weaned down to 5 L of oxygen 4. O2 per protocol arrange for home oxygen; arrange for home oxygen 5. Pulmonary consultation appreciated 6. Continue with supportive care 7. GI and DVT prophylaxis
[2021-06-13] MEDS: predniSONE 20 MG TAB PO SCH (20:57)
[2021-06-13] MEDS: ATORVASTATIN 40 MG TAB PO SCH (20:57)
[2021-06-14 05:08] LABS: Absolute Lymphocytes (CBC) 0.7 K/uL (0.7-4.9); Basophils % 0.3 % (0-1.3); Hematocrit 38.3 % (36.0-45.0); Lymphocytes % 3.5 % (15.3-44.8); MPV 7.9 fL (7.6-11.3); RBC Red Blood Cell Count 4.44 M/uL (3.86-4.86)
[2021-06-14 05:30] LABS: BUN Blood Urea Nitrogen 27 mg/dL (7-18); Bicarbonate 30 mmol/L (21-32); Ferritin 279.1 ng/mL (8-388); Glucose Level 201 mg/dL (74-106); Magnesium 1.6 mg/dL (1.8-2.4); Potassium 4.2 mmol/L (3.5-5.1); Sodium Level 135 mmol/L (136-145)
[2021-06-14] MEDS: INSULIN GLARGINE 100 UNIT/ML SQ SCH (07:48)
[2021-06-14] MEDS: INSULIN -REGULAR HUMAN 50 UNIT/0.5 ML ML SQ SCH ×4 (07:48→20:57)
[2021-06-14] MEDS: RIVAROXABAN 10 MG TABLET PO SCH (07:48)
[2021-06-14] MEDS: VITAMIN D 5,000 UNIT CAP PO SCH (07:49)
[2021-06-14] MEDS: FAMOTIDINE 20 MG TAB PO SCH ×2 (07:49→20:44)
[2021-06-14] MEDS: ZINC SULFATE 220 MG CAP PO SCH (07:49)
[2021-06-14] MEDS: predniSONE 20 MG TAB PO SCH ×2 (07:49→20:44)
[2021-06-14] MEDS: SITAGLIPTIN PHOS 100 MG TAB PO SCH (07:56)
[2021-06-14] MEDS: FUROSEMIDE 20 MG TABLET PO SCH (07:56)
[2021-06-14] MEDS: ASPIRIN EC 81 MG TAB PO SCH (07:56)
[2021-06-14] MEDS: lisinopriL 20 MG TAB PO SCH (07:56)
[2021-06-14] MEDS: METFORMIN HCL 500 MG TAB PO SCH ×2 (07:56→16:39)
--- NOTE | 2021-06-14 08:11 | P.PN ---
Subjective Date of Service: 06/14/21 Primary Care Provider: Zuleika Chief Complaint: Covid Subjective: Improving Review of Systems 10-point ROS is otherwise unremarkable Respiratory: SOB with Excertion Physical Examination - Vital Signs Temperature: 98.5 F Blood Pressure: 137/77 Pulse: 80 Respirations: 28 Pulse Ox (%): 88 - Physical Exam General: Alert, In no apparent distress HEENT: Atraumatic, PERRLA, EOMI Neck: Supple, JVD not distended Respiratory: Clear to auscultation bilaterally, Normal air movement Cardiovascular: Regular rate/rhythm, Normal S1 S2 Gastrointestinal: Normal bowel sounds, No tenderness Musculoskeletal: No tenderness Integumentary: No rashes Neurological: Normal speech, Normal tone, Normal affect Lymphatics: No axilla or inguinal lymphadenopathy - Studies Medications List Reviewed: Yes Assessment & Plan - Problems (Diagnosis) (1) COVID-19 Current Visit: Yes Status: Acute Plan: will admit to the hospital. Consult Dr. Newsome. Will start the patient on the I-math protochol. Will see if she recovers in a few day. Hopefully we can send her home with home o2 06/13 Patient is improving. The patient is on 5lts. Desat with activity Will continue to wean and stop steroids. (2) HTN (hypertension) Current Visit: Yes Status: Chronic Plan: restart the home dose of lisinopril. Qualifiers: Hypertension type: primary hypertension Qualified Code(s): I10 - Essential (primary) hypertension (3) Hyperlipidemia associated with type 2 diabetes mellitus Current Visit: Yes Status: Chronic Plan: . Sliding scale insulin. Will start dose of levemir while in the hospital. will keep her on lantus. Start the patient on metformin 500mg po qday Discharge Plan: Home Plan to discharge in: 24 Hours - Code Status/Comfort Care Code Status Assessed: No Code Status: Full Code Physician Review: Patient Assessed, Agree with Above Assessment and Plan Critical Care: No Time Spent Managing Pts Care (In Minutes): 25
--- NOTE | 2021-06-14 08:45 | RAD REPORT ---
EXAM DESCRIPTION: RAD - Chest Single View - 06/14/2021 5:42 am CLINICAL HISTORY: Pneumonia Chest pain. COMPARISON: Chest Single View dated 06/07/2021; Chest Single View dated 07/31/2017 FINDINGS: Portable technique limits examination quality. Since 06/07/2021, there has been mild to moderate improvement in bilateral pulmonary opacities. Mild bilateral pulmonary opacities persist. The heart is mildly enlarged in size. No displaced fractures. IMPRESSION: Mild to moderate improvement in lung aeration seen since comparative study.
[2021-06-14] MEDS: ACETAMINOPHEN 325 MG TABLET PO PRN (20:43)
[2021-06-14] MEDS: ATORVASTATIN 40 MG TAB PO SCH (20:44)
[2021-06-15 05:18] LABS: Absolute Lymphocytes (CBC) 0.8 K/uL (0.7-4.9); Basophils % 0.1 % (0-1.3); Hematocrit 36.3 % (36.0-45.0); Lymphocytes % 4.5 % (15.3-44.8); MPV 7.5 fL (7.6-11.3); RBC Red Blood Cell Count 4.18 M/uL (3.86-4.86)
[2021-06-15 05:35] LABS: BUN Blood Urea Nitrogen 32 mg/dL (7-18); Bicarbonate 30 mmol/L (21-32); Glucose Level 230 mg/dL (74-106); Potassium 4.5 mmol/L (3.5-5.1); Sodium Level 135 mmol/L (136-145)
[2021-06-15 05:36] LABS: C-Reactive Protein < 2.90 mg/L (<3.00)
[2021-06-15] MEDS: RIVAROXABAN 10 MG TABLET PO SCH (08:24)
[2021-06-15] MEDS: ASPIRIN EC 81 MG TAB PO SCH (08:24)
[2021-06-15] MEDS: FUROSEMIDE 20 MG TABLET PO SCH (08:24)
[2021-06-15] MEDS: lisinopriL 20 MG TAB PO SCH (08:25)
[2021-06-15] MEDS: VITAMIN D 5,000 UNIT CAP PO SCH (08:25)
[2021-06-15] MEDS: FAMOTIDINE 20 MG TAB PO SCH ×2 (08:25→21:19)
[2021-06-15] MEDS: METFORMIN HCL 500 MG TAB PO SCH ×2 (08:25→17:01)
[2021-06-15] MEDS: predniSONE 20 MG TAB PO SCH ×2 (08:25→21:19)
[2021-06-15] MEDS: ZINC SULFATE 220 MG CAP PO SCH (08:25)
[2021-06-15] MEDS: SITAGLIPTIN PHOS 100 MG TAB PO SCH (08:25)
[2021-06-15] MEDS: INSULIN GLARGINE 100 UNIT/ML SQ SCH (08:26)
[2021-06-15] MEDS: INSULIN -REGULAR HUMAN 50 UNIT/0.5 ML ML SQ SCH ×4 (08:27→21:19)
--- NOTE | 2021-06-15 08:45 | P.PN ---
Subjective Date of Service: 06/15/21 Primary Care Provider: Zuleika Chief Complaint: Covid Subjective: Improving Review of Systems 10-point ROS is otherwise unremarkable Physical Examination - Vital Signs Temperature: 97.0 F Blood Pressure: 124/66 Pulse: 76 Respirations: 24 Pulse Ox (%): 93 - Physical Exam General: Alert, In no apparent distress HEENT: Atraumatic, PERRLA, EOMI Neck: Supple, JVD not distended Respiratory: Clear to auscultation bilaterally, Normal air movement Cardiovascular: Regular rate/rhythm, Normal S1 S2 Gastrointestinal: Normal bowel sounds, No tenderness Musculoskeletal: No tenderness Integumentary: No rashes Neurological: Normal speech, Normal tone, Normal affect Lymphatics: No axilla or inguinal lymphadenopathy - Studies Medications List Reviewed: Yes Assessment & Plan - Problems (Diagnosis) (1) COVID-19 Current Visit: Yes Status: Acute Plan: will admit to the hospital. Consult Dr. Newsome. Will start the patient on the I-math protochol. Will see if she recovers in a few day. Hopefully we can send her home with home o2 06/15 Patient is improving. The patient is on 5lts. Will try weaning to 4 lts. If she tolerates this we can send her home on home oxygen. (2) HTN (hypertension) Current Visit: Yes Status: Chronic Plan: restart the home dose of lisinopril. Qualifiers: Hypertension type: primary hypertension Qualified Code(s): I10 - Essential (primary) hypertension (3) Hyperlipidemia associated with type 2 diabetes mellitus Current Visit: Yes Status: Chronic Plan: . Sliding scale insulin. Will start dose of levemir while in the hospital. will keep her on lantus. Start the patient on metformin 500mg po qday Discharge Plan: Home Plan to discharge in: 24 Hours - Code Status/Comfort Care Code Status Assessed: No Physician Review: Patient Assessed, Agree with Above Assessment and Plan Critical Care: No Time Spent Managing Pts Care (In Minutes): 20
[2021-06-15] MEDS: ACETAMINOPHEN 325 MG TABLET PO PRN (16:03)
[2021-06-15 17:57] LABS: Ferritin 242.3 ng/mL (8-388)
[2021-06-15] MEDS: ATORVASTATIN 40 MG TAB PO SCH (21:19)
[2021-06-16 04:49] LABS: Absolute Lymphocytes (CBC) 0.7 K/uL (0.7-4.9); Basophils % 0.1 % (0-1.3); Lymphocytes % 4.7 % (15.3-44.8); MPV 7.4 fL (7.6-11.3); RBC Red Blood Cell Count 4.13 M/uL (3.86-4.86)
[2021-06-16 05:15] LABS: ALT/SGPT 24 U/L (12-78); AST/SGOT 12 U/L (15-37); Albumin 2.2 g/dL (3.4-5.0); Alkaline Phosphatase 58 U/L (45-117); BUN Blood Urea Nitrogen 27 mg/dL (7-18); Bicarbonate 30 mmol/L (21-32); Bilirubin Total 0.7 mg/dL (0.2-1.0); Ferritin 248.8 ng/mL (8-388); Glucose Level 241 mg/dL (74-106); Potassium 4.9 mmol/L (3.5-5.1); Protein, Total 5.2 g/dL (6.4-8.2); Sodium Level 135 mmol/L (136-145)
[2021-06-16 05:40] LABS: C-Reactive Protein < 2.90 mg/L (<3.00)
[2021-06-16] MEDS: INSULIN -REGULAR HUMAN 50 UNIT/0.5 ML ML SQ SCH (08:14)
[2021-06-16] MEDS: ASPIRIN EC 81 MG TAB PO SCH (08:15)
[2021-06-16] MEDS: METFORMIN HCL 500 MG TAB PO SCH (08:15)
[2021-06-16] MEDS: RIVAROXABAN 10 MG TABLET PO SCH (08:15)
[2021-06-16] MEDS: VITAMIN D 5,000 UNIT CAP PO SCH (08:15)
[2021-06-16] MEDS: INSULIN GLARGINE 100 UNIT/ML SQ SCH (08:15)
[2021-06-16] MEDS: SITAGLIPTIN PHOS 100 MG TAB PO SCH (08:15)
[2021-06-16] MEDS: predniSONE 20 MG TAB PO SCH (08:15)
[2021-06-16] MEDS: lisinopriL 20 MG TAB PO SCH (08:15)
[2021-06-16] MEDS: FUROSEMIDE 20 MG TABLET PO SCH (08:16)
[2021-06-16] MEDS: FAMOTIDINE 20 MG TAB PO SCH (08:17)
[2021-06-16 08:18] VITALS: BP 140/78
[2021-06-16] MEDS: ZINC SULFATE 220 MG CAP PO SCH (08:18)
[2021-06-16 08:33] VITALS: TEMP 97
--- NOTE | 2021-06-16 08:56 | P.DS ---
Admission Date: 06/07/21 Discharge Date: 06/16/21 Primary Care Provider: Zuleika Disposition: ROUTINE DISCHARGE Discharge Condition: GOOD Reason for Admission: Covid - Problems (1) COVID-19 Current Visit: Yes Status: Acute (2) HTN (hypertension) Current Visit: Yes Status: Chronic Qualifiers: Hypertension type: primary hypertension Qualified Code(s): I10 - Essential (primary) hypertension (3) Hyperlipidemia associated with type 2 diabetes mellitus Current Visit: Yes Status: Chronic Brief History of Present Illness: Office patient of [employer]. She and most of her family have caught covid. She had called late last week. Was started on the I-mask protochol. Had asked her to call me if she got short of breath. She had been short of breath for the last few days. However she got worse today and her brought her to the ER. I had seen the patientas she was coming in. She was having difficulty sleeping. Was 80% on Room air. Was put on oxygen and started on steroids in the ER she is currently resting comfortably. Hospital Course: Patient was admitted for covid. Did well on the steroid protochol she is on 1 lt of oxygen at rest. Will discharge her home today on a steroid taper. Will follow up with the patient via a phone visit next week. She is not contagious and she can come to the office. This is more for her convience. Vital Signs/Physical Exam: Temp Pulse Resp BP Pulse Ox 97 F 75 20 140/78 94 06/16/21 08:00 06/16/21 08:00 06/16/21 08:00 06/16/21 08:16 06/16/21 08:00 General: Alert, In no apparent distress HEENT: Atraumatic, PERRLA, EOMI Neck: Supple, JVD not distended Respiratory: Clear to auscultation bilaterally, Normal air movement Cardiovascular: Regular rate/rhythm, Normal S1 S2 Gastrointestinal: Normal bowel sounds, No tenderness Musculoskeletal: No tenderness Integumentary: No rashes Neurological: Normal speech, Normal tone, Normal affect Lymphatics: No axilla or inguinal lymphadenopathy Laboratory Data at Discharge: WBC 15.10 K/uL (4.3-10.9) H 06/16/21 04:31 Hgb 11.7 g/dL (12.0-15.0) L 06/16/21 04:31 Hct 36.0 % (36.0-45.0) 06/16/21 04:31 Plt Count 427 K/uL (152-406) H 06/16/21 04:31 PT 12.0 SECONDS (9.5-12.5) 06/07/21 16:04 INR 1.04 06/07/21 16:04 APTT 21.7 SECONDS (24.3-36.9) L 06/07/21 16:04 Sodium 135 mmol/L (136-145) L 06/16/21 04:31 Potassium 4.9 mmol/L (3.5-5.1) 06/16/21 04:31 BUN 27 mg/dL (7-18) H 06/16/21 04:31 Creatinine 0.74 mg/dL (0.55-1.3) 06/16/21 04:31 Glucose 241 mg/dL (74-106) H 06/16/21 04:31 Phosphorus 2.8 mg/dL (2.5-4.9) 06/13/21 05:22 Magnesium Cancelled 06/14/21 06:00 Total Bilirubin 0.7 mg/dL (0.2-1.0) 06/16/21 04:31 AST 12 U/L (15-37) L 06/16/21 04:31 ALT 24 U/L (12-78) 06/16/21 04:31 Alkaline Phosphatase 58 U/L (45-117) 06/16/21 04:31 Triglycerides 140 mg/dL (<150) 06/08/21 05:38 Cholesterol 166 mg/dL (<200) 06/08/21 05:38 HDL Cholesterol 38 mg/dL (40-60) L 06/08/21 05:38 Cholesterol/HDL Ratio 4.37 06/08/21 05:38 Home Medications: Acetaminophen with Codeine [Acetaminophen-Cod #2 Tablet] 1 each PO PRN 06/07/21 Clindamycin HCl 150 mg PO BID 06/07/21 Glimepiride 2 mg PO BID 06/07/21 Glimepiride 4 mg PO DAILY 06/07/21 Metformin ER [Glucophage ER*] 500 mg PO BID 06/07/21 Nitrofuran Macro [Macrobid] 100 mg PO BID 06/07/21 Phenazopyridine HCl [Pyridium] 200 mg PO TID 06/07/21 Smz./Tmp. [Bactrim Ds 800 MG/160 MG*] 800 tab PO Q12HP 06/07/21 Insulin Glargine,Hum.rec.anlog [Semglee] 25 unit SQ DAILY WITH BREAKFAST 30 Days #20 ml 06/16/21 Prednisone [Sterapred Ds] 10 mg PO BID 15 Days #60 tab.ds.pk 06/16/21 New Medications: Insulin Glargine,Hum.rec.anlog [Semglee] 25 unit SQ DAILY WITH BREAKFAST 30 Days #20 ml Prednisone [Sterapred Ds] 10 mg PO BID 15 Days #60 tab.ds.pk Diet: Regular Activity: Ad elmer Followup: Pee To MD [Primary Care Provider] - 1 Week (set up a phone visit) Physician Review: Patient Assessed, Agree with Above Assessment and Plan Time spent managing pt's care (in minutes): 30
[2021-06-16 10:08] VITALS: O2SAT 99
== END 2021-06-16 10:58 | disposition home or self-care (01) | DRG 177 ==
LOC: ER 15:15 → ERHOLD 17:29 → 3RD-ICU 19:16
PROVIDERS: ADMIT Internal Medicine; ATTEND Internal Medicine
DX: U07.1 COVID-19 (principal); J12.82 Pneumonia due to coronavirus disease 2019; I10 Essential (primary) hypertension; E78.5 Hyperlipidemia, unspecified; E11.9 Type 2 diabetes mellitus without complications
CPT/HCPCS: 36415; 71045; 71275; 80048; 80053; 80061; 80076; 82728; 82947; 83605; 83735; 84100; 84145; 84484; 85025; 85379; 85610; 85730; 86140; 87040; 93005; 94002; 94003; 94760; 96361; 96374; 99285; J1815; J2920; J2930; J3486; J7030; J7050; J7512; Q9967; U0003

== ENCOUNTER 2021-06-16 20:02 | Emergency (ER) | payer SELFPAY ==
--- OUTSIDE RECORDS SUMMARY | 2021-06-16 20:05 | XMS REPORT | Continuity of Care Document ---
:1960 Author Organization [facility] t Address [address] [place] [address] Dr. Ambrosio [address] [place] [address] Care Team Providers Name Role Phone Doctor [...] Branch Meperidi Propensi Active Other - See 0 migraine Univers ne Hcl ty to comments 3-08 ity of adverse 00:00: [place] reaction 00 Medical [facility] Social History Social Habit Start Date Stop Date Quantity Comments Source Sex Assigned At Uni versity of [facility] Smoking Status Start Date Stop Date Source Never smoker [facility] Medications Ordered Filled Start Stop Current Ordering Indication Dosage Frequency Signature Comments Components Source Medication Medication Date Date Medication? Clinician (SIG) Name Name cefTRIAXone 2020- No 1000mg 1,000 mg, Univers (ROCEPHIN) 09-0816 IV ity of 1,000 mg in 07:30: 07:23 [place], [place] NaCl 0.9% 00 :00 ONCE, 1 [...] injection 0100, 120 mL Routine PARoxetine Yes [id number] 10mg Take 1 U nivers (PAXIL) 10 2-16 tablet by [place] mg [place] bed[place]. [place] PARoxetine Yes [id number] 10mg Take 1 U nivers (PAXIL) 10 2-16 tablet by [place] mg [place] bedtime. Medical [place] cefdinir 2020- No [id number] 300mg Take 1 U nivers 300 mg 09-08 capsule by ity of capsule 00:00: 05:59 mouth 2 [place] 00 :00 (two) Medical times Branch daily for 8 days. METFORMIN 2018-07 Yes [id number] TAKE 2 U nivers ER 500 mg 1-08 TABLETS BY ity of 24 hr 00:00: MOUTH [place] tablet 00 TWICE Medical DAILY Branch METFORMIN 2018-07 Yes [id number] TAKE 2 U nivers ER 500 mg 1-08 TABLETS BY ity of 24 hr 00:00: MOUTH [place] tablet 00 TWICE Medical DAILY Branch lisinopril Yes [id number] 20mg Take 1 U nivers 20 mg 9-10 tablet by ity of tablet 00:00: mouth [place] 00 daily. Medical Branch lisinopril Yes [id number] 20mg Take 1 U nivers 20 mg 9-10 tablet by ity of tablet 00:00: mouth [place] 00 daily. Medical Branch lisinopril Yes [id number] 20mg Take 1 U nivers 20 mg 9-10 tablet by ity of tablet 00:00: mouth [place] 00 daily. Medical Branch glimepiride Yes [id number] 2mg Take 1 Univers 2 mg tablet 6-11 tablet by ity of 00:00: mouth 2 [place] 00 (two) Medical times Branch daily with meals. glimepiride Yes [id number] 2mg Take 1 Univers 2 mg tablet 6-11 tablet by ity of 00:00: mouth 2 [place] (two) Medical times Branch daily with meals. glimepiride Yes [id number] 2mg Take 1 Univers 2 mg tablet 6-11 tablet by ity of 00:00: mouth 2 [place] 00 (two) Medical times Branch daily with meals. lisinopril 2019- No [id number] 20mg Take 1 Univers 20 mg 6-11 09-10 tablet by ity of tablet 00:00: 00:00 mouth [place] 00 :00 daily. Medical Branch pravastatin Yes 40mg Take 1 Univ ers 40 mg 4-10 tablet by ity of tablet 00:00: mouth at [place] [address] bedtime. Medical Branch pravastatin Yes 40mg Take 1 Univ ers 40 mg 4-10 tablet by ity of tablet 00:00: mouth at [place] [address] bedtime. Medical Branch metformin Yes [id number] 1000mg Take 2 Univers ER 500 mg 4-10 tablets by ity of 24 hr 00:00: mouth 2 [place] tablet 00 (two) Medical times Branch daily. pravastatin Yes 40mg Take 1 Univ ers 40 mg 4-10 tablet by ity of tablet 00:00: mouth at [place] 00 bedtime. Medical Branch QUEtiapine Yes Take 50mg [...] Source Systolic blood 2019-09-08 07:02:00 167 mm[Hg] [facility] Diastolic blood 2019-09-08 07:02:00 96 mm[Hg] [facility] Heart rate 2019-09-08 07:02:00 83 /min [facility] Body temperature 2019-09-08 07:02:00 35.83 Lizette [facility] Respiratory rate 2019-09-08 07:02:00 20 /min [facility] Oxygen saturation in 2019-09-08 07:02:00 98 /min [facility] blood by [facility] Pulse oximetry Branch Body weight 2019-09-08 02:49:00 72.576 kg [facility] BMI 2019-09-08 02:49:00 29.26 kg/m2 [facility] Procedures Procedure Date / Time Performing Clinician Source Performed AUTHORIZATION FOR 2019-10-25 05:01:00 Doctor Unassigned, No Univ [facility] RELEASE OF PHI Name [facility] URINALYSIS 2019-09-08 05:30:00 Rojelio Pinon [facility] TROPONIN I 2019-09-08 04:54:00 Rojelio Pinon [facility] EKG-12 LEAD 2019-09-08 04:30:45 Rojelio Pinon [facility] XR ABDOMEN ACUTE SERIES 2019-09-08 03:53:54 Rojelio Pinon [facility] CBC WITH DIFFERENTIAL 2019-09-08 03:07:00 Rojelio Pinon [facility] CK (CREATINE KINASE) + 2019-09-08 03:07:00 Rojelio Pinon [facility] LIPASE 2019-09-08 03:07:00 Rojelio Pinon [facility] COMP. METABOLIC PANEL 2019-09-08 03:07:00 WilmerutRojelio [facility] ([id number]) Medical Branch Encounters Start End Encounter Admission Attending Care Care Encounter Source Date/Time Date/Time Type Type Clinicians Facility Department ID 2019-10-25 2019-10-25 Orders Doctor CADENCE [id number] Univers 00:00:00 00:00:00 Only Unassigned, MANUEL [id number] ity of [place] [facility] [id number] Fahad as [id number] [facility] 009 Branch 2019-09-07 2019-09-08 Emergency Vasut, TRAUMA [id number] Univers 20:51:07 01:39:00 Rojelio Woodson [place] [id number] [place] [id number] [facility] 014 Branch 2019-04-02 2019-04-02 Katrina Canales [facility] [id number] Univers 00:00:00 00:00:00 Michael [place] [id number] i [place] Profess[place] [id number] Nh dical nal [address] Branch Building Results Test Description Test Time Test Comments Results Result Comments Source URINALYSIS 2019-09-08 06:01:00 Test Item Value Reference Range Interpretation Comme nts APPEARANCE (test code = Turbid Clear A 2752471713) COLOR (test code = 3917799845) Yellow Yellow PH (test code = 9452752145) 4.8-8.0 SP GRAVITY (test code = 1.003-1.030 1339730740) GLU U QUAL (test code = 50 mg/dL Normal A 1558639983) BLOOD (test code = 3166992525) 1+ Negative A KETONES (test code = 0044672495) 20 mg/dL Negative A PROTEIN (test code = 2887-8) 100 mg/dL Negative A UROBILIN (test code = 4.0 mg/dL Normal A 2125064247) BILIRUBIN (test code = Negative Negative 6777139492) NITRITE (test code = 4334436006) Positive Negative A LEUK JUANY (test code = 75/uL Negative A 6829397142) RBC/HPF (test code = 1663313457) <1 See_Comment [Automated message] The system which ge nerated this result transmit roosevelt reference range: 0 - 3 HP F. The reference range was not used to interpret th is result as normal/abnormal . WBC/HPF (test code = 1120406317) >182 See_Comment H [Automated message] The system which ge nerated this result transmit roosevelt reference range: 0 - 5 HP F. The reference range was not used to interpret th is result as normal/abnormal . BACTERIA (test code = Many Negative A 3268415350) MUCOUS (test code = 1006018698) Marked Negative LPF A SQ EPITH (test code = See_Comment H [Auto mated message] The 1957857598) system which ge nerated this result transmit roosevelt reference range: <=2 HPF. The reference range was not used to interpret th is result as normal/abnormal . WBC CLUMPS (test code = See_Comment H [Au tomated message] The 9513560031) system which ge nerated this result transmit roosevelt reference range: <=1 HPF. The reference range was not used to interpret th is result as normal/abnormal . HYAL CAST (test code = See_Comment H [Aut omated message] The 6113929202) system which [employer] nerated this result transmit roosevelt reference range: <=2 LPF. The reference range was not used to interpret th is result as normal/abnormal . Lab Interpretation (test code = Abnormal 53987-2) [facility] (CREATINE KINASE) + [id number] 05:31:00 Test Item Value Reference Range Interpretation Comments CK (test code = 43 U/L 33-194 Slight hemol ysis 3793836895) CK-MB (test code = 1.42 ng/mL See_Comment [Automat ed 2882270791) message] The system which generated this result transmitted reference range : <=3.50. The reference range was not used to interpret this result as normal/abnormal . CKMB INDEX (test code 3.3 % 0-2.5 H Slight hemolysis = 2192198983) MATTHEW (test code = MATTHEW) Biotin has been reported to cause a negative bias, interpret results relative to patient's use of biotin. Lab Interpretation Abnormal (test code = 62923-8) [id number] Test Item Value Reference Range Interpretation Comments TROPONIN I (test 0.014 ng/mL See_Comment [Automated code = 4644623022) message] The system which generated this result [...] ? Lab Interpretation Normal (test code = 84166-3) [facility] [id number] 05:15:52 Unremarkable acute abdomen series. No significant [...] this study and agree with theabove report. [facility]. METABOLIC PANEL (38869)2019-09-08 03:26:00 Test Item Value Reference Range Interpretation Comments NA (test code = 133 mmol/L 135-145 L 6409201305) K (test code = 4.0 mmol/L 3.5-5 Slight 6324569149) hemolysis CL (test code = 97 mmol/L 98-108 L 1920444255) CO2 TOTAL (test code 22 mmol/L 23-31 L = 4946838156) AGAP (test code = 2-16 4126653115) BUN (test code = 15 mg/dL 7-23 Slight 1658968037) hemolysis GLUCOSE (test code = 143 mg/dL 70-110 H 2933998135) CREATININE (test code 1.34 mg/dL 0.5-1.04 H = 1263499820) TOTAL BILI (test code 1.3 mg/dL 0.1-1.1 H = 3013289989) CALCIUM (test code = 9.7 mg/dL 8.6-10.6 1663491151) T PROTEIN (test code 6.8 g/dL 6.3-8.2 = 6847708298) ALBUMIN (test code = 4.2 g/dL 3.5-5 3214130694) ALK PHOS (test code = 45 U/L 34-122 Slight 6055120085) hemolysis ALTv (test code = 9 U/L 5-35 1742-6) AST(SGOT) (test code 19 U/L 13-40 Slight = 7490881856) hemolysis eGFR Calculation mL/min/1.73m2 (Non-) (test code = 0741546101) eGFR Calculation mL/min/1.73m2 () (test code = 9802607150) MATTHEW (test code = MATTHEW) Association of [...] tests). Lab Interpretation Abnormal (test code = 04367-3) [facility]00 Test Item Value Reference Range Interpretation Comments LIPASE (test code = 6907778748) 141 U/L 0-220 Lab Interpretation (test code = Normal 28738-4) [facility] WITH [id number] 03:18:00 Test Item Value Reference Range Interpretation [...] RDW-SD (test code = 41.4 fL 39-49.9 95520-2) RDW-CV (test code = 13.3 % 12-15.5 788-0) PLT (test code = See_Comment H [Automated 777-3) message] The sy stem which generated this result transmitted reference range : 166 - 358 10*3/ ?L. The reference r rashel was not used to interpret this result as normal/abnormal . MPV (test code = 8.9 fL 9.5-12.9 L 61710-1) NRBC/100 WBC (test See_Comment [Automat ed code = 0166491163) message] The system which generated this result transmitted reference range : 0.0 - 10.0 /100 WBCs. The refer ence range was not u sed to interpret th is result as normal/abnormal . NRBC x10^3 (test code <0.01 See_Comment [Auto mated = 0543220135) message] The s ystem which generated this result transmitted reference range : 10*3/?L. The reference range was not used to interpret this result as normal/abnormal . GRAN MAT (NEUT) % 63.6 % (test code = 770-8) IMM GRAN % (test code 0.60 % = 5016399890) LYMPH % (test code = 27.0 % 736-9) MONO % (test code = 7.4 % 5905-5) EOS % (test code = 0.6 % 713-8) BASO % (test code = 0.8 % 706-2) GRAN MAT x10^3(ANC) 5.91 10*3/uL 1.88-7.09 (test code = 8693037640) IMM GRAN x10^3 (test 0.06 10*3/uL 0-0.06 code = 9781568222) LYMPH x10^3 (test code 2.51 10*3/uL 1.32-3.29 = 731-0) MONO x10^3 (test code 0.69 10*3/uL 0.33-0.92 = 742-7) EOS x10^3 (test code = 0.06 10*3/uL 0.03-0.39 711-2) BASO x10^3 (test code 0.07 10*3/uL 0.01-0.07 = 704-7) Lab Interpretation Abnormal (test code = 42937-1) [facility]"
[2021-06-16] MEDS ORDERED: INSULIN -REGULAR HUMAN 50 UNIT/0.5 ML ML ONE (20:58)
[2021-06-16] MEDS ORDERED: Ringers Lactate 1,000 ML IV ONE (20:58)
[2021-06-16 21:20] LABS: Absolute Lymphocytes (CBC) 0.4 K/uL (0.7-4.9); Basophils % 0.1 % (0-1.3); Hematocrit 36.5 % (36.0-45.0); MPV 7.4 fL (7.6-11.3); RBC Red Blood Cell Count 4.18 M/uL (3.86-4.86)
[2021-06-16 21:33] LABS: Potassium 4.4 mmol/L (3.5-5.1)
--- NOTE | 2021-06-16 22:37 | ER ---
Nurse's Notes [facility] Name: Caryn Johnson Age: 61 yrs Sex: Female : 1960 Arrival Date: 06/16/2021 Time: 20:06 Bed 4 Private MD: Pee To Diagnosis: Hyperglycemia, unspecified Presentation: 06/16 20:43 Chief complaint: Patient states: " I am steriods, and my sugar is high. I just got of tw5 the hospital after being in for 10 days in the covid unit". Coronavirus screen: Vaccine status: Patient reports having had a previously documented Covid positive illness. Ebola Screen: Patient negative for fever greater than or equal to 101.5 degrees Fahrenheit, and additional compatible Ebola Virus Disease symptoms Patient denies exposure to infectious person. Patient denies travel to an Ebola-affected area in the 21 days before illness onset. Initial Sepsis Screen: Does the patient meet any 2 criteria? No. Patient's initial sepsis screen is negative. Does the patient have a suspected source of infection? No. Patient's initial sepsis screen is negative. Risk Assessment: Do you want to hurt yourself or someone else? Patient reports no desire to harm self or others. 20:43 Method Of Arrival: Ambulatory tw5 20:43 Acuity: MAYTE 3 tw5 20:43 Onset of symptoms was June 16, 2021. tw5 Triage Assessment: 20:45 General: Appears in no apparent distress. Behavior is calm, cooperative, appropriate tw5 for age. Pain: Denies pain. Historical: - Allergies: 20:45 Levaquin; tw5 20:45 Nalfon; tw5 20:45 Fenoprofen; tw5 - PMHx: 20:45 Diabetes - NIDDM; Hypertension; ovarian CA; covid may 2021; tw5 - Immunization history:: Client reports having NOT received the Covid vaccine. - Social history:: Smoking status: Patient/guardian denies using tobacco, the patient reports quitting approximately 30 years ago. Screenin:47 Abuse screen: Denies threats or abuse. Denies injuries from another. Nutritional tw5 screening: No deficits noted. Tuberculosis screening: No symptoms or risk factors identified. Fall Risk No fall in past 12 months (0 pts). Secondary diagnosis (15 points) IV access (20 points). Ambulatory Aid- Crutches/Cane/Walker (15 pts). Gait- Weak (10 pts.). Assessment: 20:47 General: Reports " I feel like I cannot sleep, and they didn't have my insulin at tw5 [facility], they stated they didn't carry that kind, and I am on steriods so my blood sugar is high. I am just so tired and I cannot sleep, and I just dont know what to do about my blood sugar. I was so excited to leave the hospital today, but now I am back again.". Pain: Denies pain. Neuro: Level of Consciousness is awake, alert, obeys commands, Oriented to person, place, time, situation. Cardiovascular: Reports None. Cardiovascular: Rhythm is sinus rhythm. Respiratory: Reports shortness of breath on exertion. 22:09 Reassessment: Patient states feeling better. Patient states symptoms have improved. tw5 22:52 Reassessment: Patient states feeling better. Patient states symptoms have improved. tw5 Vital Signs: 20:43 BP 137 / 70; Pulse 77; Resp 16; Temp 97.9; Pulse Ox 100% on R/A; Weight 79.38 kg; tw5 Height 5 ft. 2 in. (157.48 cm); Pain 1/10; 22:09 BP 145 / 85; Pulse 73; Resp 16; Pulse Ox 100% on R/A; Pain 0/10; tw5 22:52 BP 145 / 84; Pulse 85; Resp 22; Temp 98.4(TE); Pulse Ox 98% on R/A; Pain 0/10; tw5 20:43 Body Mass Index 32.01 (79.38 kg, 157.48 cm) tw5 ED Course: 20:06 Patient arrived in ED. mr 20:06 Pee To MD is Private Physician. mr 20:28 Neris Mejia is Primary Nurse. tw5 20:32 Raimundo Foster PA is PHCP. jr8 20:32 Jack Ruiz MD is Attending Physician. jr8 20:35 EKG done. tw5 20:45 Triage completed. tw5 20:45 Arm band placed on right wrist. tw5 20:47 Patient has correct armband on for positive identification. Placed in gown. Bed in low tw5 position. Call light in reach. Side rails up X 1. engine monitor on. Pulse ox on. NIBP on. Door closed. Moved to private room. 20:55 Basic Metabolic Panel Sent. tw5 20:56 CBC with Diff Sent. tw5 22:36 Pee To MD is Referral Physician. jr8 22:52 No provider procedures requiring assistance completed. IV discontinued, intact, tw5 bleeding controlled, No redness/swelling at site. Pressure dressing applied. Administered Medications: 20:56 Drug: Insulin Regular Human 5 units {Co-Signature: df1 (Reena Houston).} Route: IVP; tw5 Site: left hand; 22:10 Follow up: Response: Blood sugar is lowered tw5 20:57 Drug: Insulin Regular Human 5 units {Co-Signature: df1 (Reena Houston).} Route: Sub-Q; tw5 Site: abdomen; 22:10 Follow up: Response: Blood sugar is lowered tw5 20:59 Drug: Ringers - Lactated Ringers Solution 1000 ml Route: IV; Rate: bolus; Site: left tw5 hand; 22:10 Follow up: Response: No adverse reaction; IV Status: Completed infusion tw5 Point of Care Testing: Blood Glucose: 20:45 Blood Glucose: 376 mg/dL; tw5 Ranges: Outcome: 22:36 Discharge ordered by . jr8 22:52 Discharged to home ambulatory. tw5 22:52 Condition: good 22:52 Discharge instructions given to patient, Instructed on discharge instructions, Demonstrated understanding of instructions. 22:53 Patient left the ED. tw5 Signatures: Bruce Lisset Raimundo Roman PA PA jr8 Neris Mejia tw5 Reena Houston df1 Corrections: (The following items were deleted from the chart) 20:45 20:43 Onset of symptoms was June 16, 2021 at 20:45 tw5 tw5
--- NOTE | 2021-06-16 22:37 | EDPHYS ---
Physician Documentation [facility] Name: Caryn Johnson Age: 61 yrs Sex: Female : 1960 Arrival Date: 06/16/2021 Time: 20:06 Bed 4 Private MD: Pee To ED Physician Jack Ruiz HPI: 06/16 21:39 This 61 yrs old Female presents to ER via Ambulatory with complaints of High Blood [facility] Sugar. 21:39 This is a 61-year-old female patient with a history of diabetes that presented to the [facility] emergency room for hyperglycemia. Patient stated that she has had frequent thirst and urination for the past few days. Had recently been admitted for Covid and released. Still on steroids at this time. Has been having trouble controlling her sugars at home with the steroid therapy. Patient stated that her glucose level was as high as 600 tonight.. Historical: - Allergies: 20:45 Levaquin; tw5 20:45 Nalfon; tw5 20:45 Fenoprofen; tw5 - PMHx: 20:45 Diabetes - NIDDM; Hypertension; ovarian CA; covid may 2021; tw5 - Immunization history:: Client reports having NOT received the Covid vaccine. - Social history:: Smoking status: Patient/guardian denies using tobacco, the patient reports quitting approximately 30 years ago. ROS: 21:39 Eyes: Negative for injury, pain, redness, and discharge, ENT: Negative for injury, jr8 pain, and discharge, Neck: Negative for injury, pain, and swelling, Cardiovascular: Negative for chest pain, palpitations, and edema, Respiratory: Negative for shortness of breath, cough, wheezing, and pleuritic chest pain, Abdomen/GI: Negative for abdominal pain, nausea, vomiting, diarrhea, and constipation, Back: Negative for injury and pain, MS/Extremity: Negative for injury and deformity, Skin: Negative for injury, rash, and discoloration, Neuro: Negative for headache, weakness, numbness, tingling, and seizure. 21:39 Endocrine: Positive for polydipsia, polyuria. Exam: 21:39 Constitutional: This is a well developed, well nourished patient who is awake, alert, [facility] and in no acute distress. ENT: Nares patent. No nasal discharge, no septal abnormalities noted. Tympanic membranes are normal and external auditory canals are clear. Oropharynx with no redness, swelling, or masses, exudates, or evidence of obstruction, uvula midline. Mucous membranes moist. Neck: Trachea midline, no thyromegaly or masses palpated, and no cervical lymphadenopathy. Supple, full range of motion without nuchal rigidity, or vertebral point tenderness. No Meningismus. Chest/axilla: Normal chest wall appearance and motion. Nontender with no deformity. No lesions are appreciated. Cardiovascular: Regular rate and rhythm with a normal S1 and S2. No gallops, murmurs, or rubs. Normal PMI, no JVD. No pulse deficits. Respiratory: Lungs have equal breath sounds bilaterally, clear to auscultation and percussion. No rales, rhonchi or wheezes noted. No increased work of breathing, no retractions or nasal flaring. Abdomen/GI: Soft, non-tender, with normal bowel sounds. No distension or tympany. No guarding or rebound. No evidence of tenderness throughout. Skin: Warm, dry with normal turgor. Normal color with no rashes, no lesions, and no evidence of cellulitis. MS/ Extremity: Pulses equal, no cyanosis. Neurovascular intact. Full, normal range of motion. Neuro: Awake and alert, GCS 15, oriented to person, place, time, and situation. Cranial nerves II-XII grossly intact. Motor strength 5/5 in all extremities. Sensory grossly intact. Vital Signs: 20:43 BP 137 / 70; Pulse 77; Resp 16; Temp 97.9; Pulse Ox 100% on R/A; Weight 79.38 kg; tw5 Height 5 ft. 2 in. (157.48 cm); Pain 1/10; 22:09 BP 145 / 85; Pulse 73; Resp 16; Pulse Ox 100% on R/A; Pain 0/10; tw5 22:52 BP 145 / 84; Pulse 85; Resp 22; Temp 98.4(TE); Pulse Ox 98% on R/A; Pain 0/10; tw5 20:43 Body Mass Index 32.01 (79.38 kg, 157.48 cm) tw5 MDM: 20:37 Patient medically screened. [facility] 22:35 Data reviewed: vital signs, nurses notes, lab test result(s). Data interpreted: Pulse jr8 oximetry: on room air is 100 %. Interpretation: normal. Counseling: I had a detailed discussion with the patient and/or guardian regarding: the historical points, exam findings, and any diagnostic results supporting the discharge/admit diagnosis, lab results, the need for outpatient follow up, a family practitioner, to return to the emergency department if symptoms worsen or persist or if there are any questions or concerns that arise at home. ED course: Kos markedly improved patient feeling better overall will discharge home to follow-up with PCP.. 06/16 20:44 Order name: Basic Metabolic Panel; Complete Time: 21:40 bb 06/16 20:44 Order name: CBC with Diff; Complete Time: 00:44 bb 06/16 21:06 Order name: Glucose, Ancillary Testing; Complete Time: 21:31 EDMS 06/16 22:20 Order name: Glucose, Ancillary Testing; Complete Time: 22:35 EDMS 06/16 22:29 Order name: Manual Differential; Complete Time: 00:44 EDMS 06/16 20:44 Order name: IV Saline Lock; Complete Time: 20:55 bb 06/16 20:44 Order name: Labs collected and sent; Complete Time: 20:55 bb 06/16 20:50 Order name: EKG - Nurse/Tech; Complete Time: 20:50 tw5 06/16 22:11 Order name: Glucose Level; Complete Time: 22:11 tw5 Administered Medications: 20:56 Drug: Insulin Regular Human 5 units {Co-Signature: df1 (Reena Houston).} Route: IVP; tw5 Site: left hand; 22:10 Follow up: Response: Blood sugar is lowered tw5 20:57 Drug: Insulin Regular Human 5 units {Co-Signature: df1 (Reena Furlich).} Route: Sub-Q; tw5 Site: abdomen; 22:10 Follow up: Response: Blood sugar is lowered tw5 20:59 Drug: Ringers - Lactated Ringers Solution 1000 ml Route: IV; Rate: bolus; Site: left tw5 hand; 22:10 Follow up: Response: No adverse reaction; IV Status: Completed infusion tw5 Point of Care Testing: Blood Glucose: 20:45 Blood Glucose: 376 mg/dL; tw5 Ranges: Critical Glucose Levels:Adult <50 mg/dl or >400 mg/dl <40 mg/dl or >180 mg/dl Disposition: 23:22 Co-signature as Attending Physician, Jack Ruiz MD I agree with the assessment and kdr plan of care. Disposition Summary: 06/16/21 22:36 Discharge Ordered Location: Home jr8 Problem: new jr8 Symptoms: have improved jr8 Condition: Stable jr8 Diagnosis - Hyperglycemia, unspecified jr8 Followup: jr8 - With: Pee To MD - When: 2 - 3 days - Reason: Recheck today's complaints, Continuance of care, Re-evaluation by your physician Discharge Instructions: - Discharge Summary Sheet jr8 - Hyperglycemia jr8 - Blood Glucose Monitoring, Adult jr8 Forms: - Medication Reconciliation Form jr8 - Thank You Letter jr8 - Antibiotic Education jr8 - Prescription Opioid Use jr8 Signatures: Dispatcher [employer] EDJack Greenfield MD MD kdr Pat Prieto, ERIC RN bb Raimundo Foster PA PA jr8 Neris Mejia tw5 [facility] df1
[2021-06-16 22:49] LABS: Blood Morphology Comment NOT SEEN (NOT SEEN); Platelet Estimate ADEQ
[2021-06-16 23:00] VITALS: BP 145/84; TEMP 98.4; O2SAT 98
== END 2021-06-16 22:53 | disposition home or self-care (01) ==
LOC: ER 20:02
DX: E11.65 Type 2 diabetes mellitus with hyperglycemia (principal); I10 Essential (primary) hypertension; Z86.16 Personal history of COVID-19; Z88.1 Allergy status to other antibiotic agents; Z88.8 Allergy status to other drugs, medicaments and biological substances
CPT/HCPCS: 36415; 80048; 82947; 85025; 93005; 96365; 96372; 96375; 99284; J7120

== ENCOUNTER 2021-06-21 07:47 | Emergency (ER) | payer SELFPAY ==
--- OUTSIDE RECORDS SUMMARY | 2021-06-21 07:50 | XMS REPORT | Continuity of Care Document ---
:1960 Author Organization [facility] t Address [address] [place] [address] Dr. Ambrosio [address] [place] [address] Care Team Providers Name Role Phone Doctor [...] of adverse 00:00: [place] reaction 00 Medical [facility] Social History Social Habit Start Date Stop Date Quantity Comments Source Sex Assigned At Uni [facility] Smoking Status Start Date Stop Date Source Never smoker [facility] Medications Ordered Filled Start Stop Current Ordering Indication Dosage Frequency Signature Comments Components Source Medication Medication Date Date Medication? Clinician (SIG) Name Name cefTRIAXone 2020- No 1000mg 1,000 mg, Univers (ROCEPHIN) 09-0816 IV ity of 1,000 mg in 07:30: 07:23 [place], [place] NaCl 0.9% 00 :00 ONCE, 1 [...] injection 0100, 120 mL Routine PARoxetine Yes [id number] 10mg Take 1 U nivers (PAXIL) 10 2-16 tablet [place] PARoxetine Yes [id number] 10mg Take 1 U nivers (PAXIL) 10 2-16 tablet [place] mg [place] bed[place]. [place] cefdinir 2020- No [id number] 300mg Take 1 U nivers 300 mg 09-08 capsule by ity of capsule 00:00: 05:59 mouth 2 [place] 00 :00 (two) Medical times Branch daily for 8 days. METFORMIN 2018-07 Yes [id number] TAKE 2 U nivers ER 500 mg 1-08 TABLETS BY ity of 24 hr 00:00: MOUTH [place] tablet 00 TWICE Medical DAILY Branch METFORMIN 2018-07 Yes [id number] TAKE 2 U nivers ER 500 mg 1-08 TABLETS BY ity of 24 hr 00:00: MOUTH [place] tablet 00 TWICE Medical DAILY Branch lisinopril Yes [id number] 20mg Take 1 U nivers 20 mg 9-10 tablet by ity of tablet 00:00: mouth [place] 00 daily. Medical Branch lisinopril Yes [id number] 20mg Take 1 U nivers 20 mg 9-10 tablet by ity of tablet 00:00: mouth [place] 00 daily. Medical Branch lisinopril Yes [id number] 20mg Take 1 U nivers 20 mg 9-10 tablet by ity of tablet 00:00: mouth [place] 00 daily. Medical Branch glimepiride Yes [id number] 2mg Take 1 Univers 2 mg tablet 6-11 tablet by ity of 00:00: mouth 2 [place] 00 (two) Medical times Branch daily with meals. glimepiride Yes [id number] 2mg Take 1 Univers 2 mg tablet 6-11 tablet by ity of 00:00: mouth 2 [place] (two) Medical times Branch daily with meals. glimepiride Yes [id number] 2mg Take 1 Univers 2 mg tablet 6-11 tablet by ity of 00:00: mouth 2 [place] 00 (two) Medical times Branch daily with meals. lisinopril 2019- No [id number] 20mg Take 1 Univers 20 mg 6-11 09-10 tablet by ity of tablet 00:00: 00:00 mouth [place] 00 :00 daily. Medical Branch pravastatin Yes 40mg Take 1 Univ ers 40 mg 4-10 tablet by ity of tablet 00:00: mouth at [place] [address] bedtime. Medical Branch pravastatin Yes 40mg Take 1 Univ ers 40 mg 4-10 tablet by ity of tablet 00:00: mouth at [place] [address] bedtime. Medical Branch metformin Yes [id number] 1000mg Take 2 Univers ER 500 mg 4-10 tablets by ity of 24 hr 00:00: mouth 2 [place] tablet 00 (two) Medical times Branch daily. pravastatin Yes 40mg Take 1 Univ ers 40 mg 4-10 tablet by ity of tablet 00:00: mouth at [place] 00 bedtime. Medical Branch QUEtiapine Yes Take [...] Source Systolic blood 2019-09-08 07:02:00 167 mm[Hg] [facility] Diastolic blood 2019-09-08 07:02:00 96 mm[Hg] [facility] Heart rate 2019-09-08 07:02:00 83 /min [facility] Body temperature 2019-09-08 07:02:00 35.83 Lizette [facility] Respiratory rate 2019-09-08 07:02:00 20 /min [facility] Oxygen saturation in 2019-09-08 07:02:00 98 /min [facility] blood by [facility] Pulse oximetry Branch Body weight 2019-09-08 02:49:00 72.576 kg [facility] BMI 2019-09-08 02:49:00 29.26 kg/m2 [facility] Procedures Procedure Date / Time Performing Clinician Source Performed AUTHORIZATION FOR 2019-10-25 05:01:00 Doctor Unassigned, No Univ [facility] RELEASE OF PHI Name [facility] Branch URINALYSIS 2019-09-08 05:30:[address] [facility] TROPONIN I 2019-09-08 04:54:[address] [facility] EKG-12 LEAD 2019-09-08 04:30:[address] [facility] XR ABDOMEN ACUTE SERIES 2019-09-08 03:53:54 Rojelio Pinon [facility] CBC WITH DIFFERENTIAL 2019-09-08 03:07:00 Rojelio Pinon [facility] CK (CREATINE KINASE) + 2019-09-08 03:07:00 Rojelio Pinon [facility] LIPASE 2019-09-08 03:07:[address] [facility] COMP. METABOLIC PANEL 2019-09-08 03:07:00 WilmerutRojelio [facility] ([id number]) Medical Branch Encounters Start End Encounter Admission Attending Care Care Encounter Source Date/Time Date/Time Type Type Clinicians Facility Department ID 2019-10-25 2019-10-25 Orders Doctor CAEDNCE [id number] Univers 00:00:00 00:00:00 Only Unassigned, MANUEL [id number] ity of [place] [facility] [id number] Fahad as [id number] [facility] 009 Branch 2019-09-07 2019-09-08 Emergency Vasut, TRAUMA [id number] Univers 20:51:07 01:39:00 Rojelio Woodson AHOSKIE [id number] [place] [id number] [facility] 014 Branch 2019-04-02 2019-04-02 Katrina Canales [facility] [id number] Univers 00:00:00 00:00:00 Michael Crum Lynne [id number] i ty of [place] 4[place]2.[place].2.686 [place] Profess[place] [id number] Ne dical nal [address] Branch Building Results Test Description Test Time Test Comments Results Result Comments Source URINALYSIS 2019-09-08 06:01:00 Test Item Value Reference Range Interpretation Comme nts APPEARANCE (test code = Turbid Clear A 4771788469) COLOR (test code = 5636201835) Yellow Yellow PH (test code = 7032838980) 4.8-8.0 SP GRAVITY (test code = 1.003-1.030 2475821091) GLU U QUAL (test code = 50 mg/dL Normal A 8984361426) BLOOD (test code = 8385609400) 1+ Negative A KETONES (test code = 4430418658) 20 mg/dL Negative A PROTEIN (test code = 2887-8) 100 mg/dL Negative A UROBILIN (test code = 4.0 mg/dL Normal A 4912149286) BILIRUBIN (test code = Negative Negative 9593495656) NITRITE (test code = 5927375615) Positive Negative A LEUK JUANY (test code = 75/uL Negative A 8192277210) RBC/HPF (test code = 7090906896) <1 See_Comment [Automated message] The system which ge nerated this result transmit roosevelt reference range: 0 - 3 HP F. The reference range was not used to interpret th is result as normal/abnormal . WBC/HPF (test code = 2102071685) >182 See_Comment H [Automated message] The system which ge nerated this result transmit roosevelt reference range: 0 - 5 HP F. The reference range was not used to interpret th is result as normal/abnormal . BACTERIA (test code = Many Negative A 6921000738) MUCOUS (test code = 4849968777) Marked Negative LPF A SQ EPITH (test code = See_Comment H [Auto mated message] The 8975002175) system which ge nerated this result transmit roosevelt reference range: <=2 HPF. The reference range was not used to interpret th is result as normal/abnormal . WBC CLUMPS (test code = See_Comment H [Au tomated message] The 3900080225) system which ge nerated this result transmit roosevelt reference range: <=1 HPF. The reference range was not used to interpret th is result as normal/abnormal . HYAL CAST (test code = See_Comment H [Aut omated message] The 4771517926) system which Abakan nerated this result transmit roosevelt reference range: <=2 LPF. The reference range was not used to interpret th is result as normal/abnormal . Lab Interpretation (test code = Abnormal 55505-5) [facility] (CREATINE KINASE) + [id number] 05:31:00 Test Item Value Reference Range Interpretation Comments CK (test code = 43 U/L 33-194 Slight hemol ysis 8156319996) CK-MB (test code = 1.42 ng/mL See_Comment [Automat ed 7221350403) message] The system which generated this result transmitted reference range : <=3.50. The reference range was not used to interpret this result as normal/abnormal . CKMB INDEX (test code 3.3 % 0-2.5 H Slight hemolysis = 9734778754) MATTHEW (test code = MATTHEW) Biotin has been reported to cause a negative bias, interpret results relative to patient's use of biotin. Lab Interpretation Abnormal (test code = 26986-0) [id number] 05:29:00 Test Item Value Reference Range Interpretation Comments TROPONIN I (test 0.014 ng/mL See_Comment [Automated code = 1394409965) message] The system which generated this result [...] ? Lab Interpretation Normal (test code = 01294-0) [facility] [id number] 05:15:52 Unremarkable acute abdomen series. No significant [...] this study and agree with theabove report. [facility] [place]. METABOLIC PANEL ([id number])2019-09-08 03:26:00 Test Item Value Reference Range Interpretation Comments NA (test code = 133 mmol/L 135-145 L 3410530777) K (test code = 4.0 mmol/L 3.5-5 Slight 5325029940) hemolysis CL (test code = 97 mmol/L 98-108 L 7852890023) CO2 TOTAL (test code 22 mmol/L 23-31 L = 8408041753) AGAP (test code = 2-16 6846919487) BUN (test code = 15 mg/dL 7-23 Slight 8485017499) hemolysis GLUCOSE (test code = 143 mg/dL 70-110 H 2919927149) CREATININE (test code 1.34 mg/dL 0.5-1.04 H = 5533166622) TOTAL BILI (test code 1.3 mg/dL 0.1-1.1 H = 8262437588) CALCIUM (test code = 9.7 mg/dL 8.6-10.6 2564805636) T PROTEIN (test code 6.8 g/dL 6.3-8.2 = 4249104048) ALBUMIN (test code = 4.2 g/dL 3.5-5 7248518070) ALK PHOS (test code = 45 U/L 34-122 Slight 7519956503) hemolysis ALTv (test code = 9 U/L 5-35 1742-6) AST(SGOT) (test code 19 U/L 13-40 Slight = 8020172147) hemolysis eGFR Calculation mL/min/1.73m2 (Non-) (test code = 0211635800) eGFR Calculation mL/min/1.73m2 () (test code = 6707654410) MATTHEW (test code = MATTHEW) Association of [...] tests). Lab Interpretation Abnormal (test code = 31938-5) [place] [facility] 03:26:00 Test Item Value Reference Range Interpretation Comments LIPASE (test code = 6148227268) 141 U/L 0-220 Lab Interpretation (test code = Normal 31595-5) [facility] WITH [id number] 03:18:00 Test Item Value Reference Range Interpretation [...] RDW-SD (test code = 41.4 fL 39-49.9 94188-2) RDW-CV (test code = 13.3 % 12-15.5 788-0) PLT (test code = See_Comment H [Automated 777-3) message] The sy stem which generated this result transmitted reference range : 166 - 358 10*3/ ?L. The reference r rashel was not used to interpret this result as normal/abnormal . MPV (test code = 8.9 fL 9.5-12.9 L 74218-0) NRBC/100 WBC (test See_Comment [Automat ed code = 6088256304) message] The system which generated this result transmitted reference range : 0.0 - 10.0 /100 WBCs. The refer ence range was not u sed to interpret th is result as normal/abnormal . NRBC x10^3 (test code <0.01 See_Comment [Auto mated = 4257967352) message] The s ystem which generated this result transmitted reference range : 10*3/?L. The reference range was not used to interpret this result as normal/abnormal . GRAN MAT (NEUT) % 63.6 % (test code = 770-8) IMM GRAN % (test code 0.60 % = 6906219179) LYMPH % (test code = 27.0 % 736-9) MONO % (test code = 7.4 % 5905-5) EOS % (test code = 0.6 % 713-8) BASO % (test code = 0.8 % 706-2) GRAN MAT x10^3(ANC) 5.91 10*3/uL 1.88-7.09 (test code = 9861241237) IMM GRAN x10^3 (test 0.06 10*3/uL 0-0.06 code = 5416658113) LYMPH x10^3 (test code 2.51 10*3/uL 1.32-3.29 = 731-0) MONO x10^3 (test code 0.69 10*3/uL 0.33-0.92 = 742-7) EOS x10^3 (test code = 0.06 10*3/uL 0.03-0.39 711-2) BASO x10^3 (test code 0.07 10*3/uL 0.01-0.07 = 704-7) Lab Interpretation Abnormal (test code = 04827-7) [facility]"
[2021-06-21] MEDS ORDERED: HYDROCODONE/APAP 10/325 TAB ONE (08:37)
[2021-06-21] MEDS ORDERED: ONDANSETRON 4 MG (ODT) TAB ONE (10:07)
--- NOTE | 2021-06-21 10:53 | RAD REPORT ---
EXAM DESCRIPTION: RAD - Humerus Right - 06/21/2021 9:56 am CLINICAL HISTORY: DEFORMITY, fall, arm pain COMPARISON: No comparisons FINDINGS: Comminuted spiral fracture midshaft right humerus is present. A pathologic component is no t identified. There is 1 full shaft width displacement of the distal fracture fragment with approxima tely 10 degrees posterior angulation. Mild degenerative change at the right shoulder joint. No acute shoulder or elbow joint finding. No fo reign body in the soft tissues. IMPRESSION: Right humerus midshaft fracture as detailed.
[2021-06-21] MEDS ORDERED: MORPHINE 4 MG/ML SYR ONE (11:12)
--- NOTE | 2021-06-21 12:48 | EDPHYS ---
Physician Documentation [facility] Name: Caryn Johnson Age: 61 yrs Sex: Female : 1960 Arrival Date: 06/21/2021 Time: 07:47 Bed 11 Private MD: ED Physician Kishore Rivera HPI: 06/21 08:36 This 61 yrs old Female presents to ER via Wheelchair with complaints of Fall Injury - pm1 Arm Injury. 08:36 Details of fall: The patient fell from an upright position, while walking. Onset: The pm1 symptoms/episode began/occurred just prior to arrival. Associated injuries: The patient sustained right upper arm. Severity of symptoms: in the emergency department the symptoms are unchanged. The patient has not experienced similar symptoms in the past. The patient has not recently seen a physician. Patient was walking in her house and tripped on her new rug. No injury to head, headache, neck pain, LOC. Historical: - Allergies: 08:26 Fenoprofen; iw 08:26 Levaquin; iw 08:26 Nalfon; iw - PMHx: 08:26 covid may 2021; Diabetes - NIDDM; Hypertension; ovarian CA; iw - Immunization history:: Adult Immunizations up to date. - Social history:: Smoking status: Patient denies any tobacco usage or history of. Patient/guardian denies using alcohol. ROS: 08:36 Constitutional: Negative for fever, chills, and weight loss. pm1 08:36 Neck: Negative for injury, pain, and swelling, Cardiovascular: Negative for chest pain, palpitations, and edema, Respiratory: Negative for shortness of breath, cough, wheezing, and pleuritic chest pain, Abdomen/GI: Negative for abdominal pain, nausea, vomiting, diarrhea, and constipation, Back: Negative for injury and pain. 08:36 Skin: Negative for injury, rash, and discoloration, Neuro: Negative for headache, weakness, numbness, tingling, and seizure. 08:36 MS/extremity: Positive for pain, of the right arm. 08:36 All other systems are negative. Exam: 08:36 Constitutional: This is a well developed, well nourished patient who is awake, alert, pm1 and in no acute distress. Head/Face: Normocephalic, atraumatic. 08:36 Skin: Warm, dry with normal turgor. Normal color with no rashes, no lesions, and no evidence of cellulitis. 08:36 Neck: Exam negative for acute changes, C-spine: vertebral tenderness, is not appreciated, ROM/movement: is normal, is supple. 08:36 Cardiovascular: Exam negative for acute changes, Rate: normal, Rhythm: regular, Pulses: no pulse deficits are appreciated, Pulses are 2+ in right radial artery. 08:36 Respiratory: Exam negative for acute changes, respiratory distress, shortness of breath. 08:36 Musculoskeletal/extremity: Extremities: grossly normal except: noted in the lateral aspect of right bicep: swelling, tenderness, There is no evidence of compartment syndrome, Pulses: are normal with no appreciated deficits, noted to be 2+ in the right radial artery, the right hand Sensation intact. 08:36 Neuro: Exam negative for acute changes, Orientation: is normal, Mentation: is normal, Motor: is normal, moves all fours. Vital Signs: 08:25 BP 123 / 73; Pulse 89; Resp 16; Temp 98.5; Pulse Ox 96% on R/A; Weight 79.38 kg; Pain iw 05/02; 12:24 BP 132 / 77; Pulse 80; Resp 17; Pulse Ox 97% ; ld1 MDM: 08:36 Patient medically screened. pm1 11:20 Physician consultation: Mamadou Law MD regarding consult, patient's condition, pm1 coaptation splint and follow up outpatient. 12:44 Data reviewed: vital signs. Data interpreted: Pulse oximetry: on room air is 97 %. pm1 Interpretation: normal. Counseling: I had a detailed discussion with the patient and/or guardian regarding: the historical points, exam findings, and any diagnostic results supporting the discharge/admit diagnosis, the need for outpatient follow up, for definitive care, a orthopedic surgeon, to return to the emergency department if symptoms worsen or persist or if there are any questions or concerns that arise at home. 06/21 08:17 Order name: XRAY Humerus RIGHT; Complete Time: 11:05 iw 06/21 08:36 Order name: Sling; Complete Time: 10:04 pm1 06/21 11:25 Order name: Splint: Coaptation splint; Complete Time: 12:23 pm1 Administered Medications: 08:40 Drug: [place] (HYDROcodone-acetaminophen) 10 mg-325 mg 1 tabs Route: PO; iw 09:00 Follow up: Response: No adverse reaction iw 10:14 Drug: Zofran (Ondansetron) 4 mg Route: PO; iw 11:41 Follow up: Response: No adverse reaction ld1 11:32 Drug: morphine 4 mg Route: IM; Site: left deltoid; iw 11:41 Follow up: Response: No adverse reaction ld1 Disposition: 06/22 08:50 Co-signature as Attending Physician, Ksihore Rivera MD I agree with the assessment and nina plan of care. Disposition Summary: 06/21/21 12:47 Discharge Ordered Location: Home pm1 Problem: new pm1 Symptoms: have improved pm1 Condition: Stable pm1 Diagnosis - Displaced spiral fracture of shaft of humerus, right arm, initial encounter for pm1 closed fracture Followup: pm1 - With: Emergency Department - When: As needed - Reason: Worsening of condition Followup: pm1 - With: Mamadou Law MD - When: 2 - 3 days - Reason: Recheck today's complaints, Continuance of care, Re-evaluation by your physician Discharge Instructions: - Discharge Summary Sheet pm1 - Humerus Fracture Treated With Immobilization pm1 - How to Use a Sling pm1 Forms: - Medication Reconciliation Form pm1 - Thank You Letter pm1 - Antibiotic Education pm1 - Prescription Opioid Use pm1 Prescriptions: - Tramadol 50 mg Oral Tablet - take 1 tablet by ORAL route every 8 hours as needed; 12 tablet; Refills: 0, pm1 Product Selection Permitted Signatures: Dispatcher [employer] Kishore Guallpa MD MD cha Williams, Irene, ERIC RN iw Albino Rodney NP LODGE OFFICER pm1 Cassandra Rose RN RN ld1
--- NOTE | 2021-06-21 12:48 | ER ---
Nurse's Notes [facility] Name: Caryn Johnson Age: 61 yrs Sex: Female : 1960 Arrival Date: 06/21/2021 Time: 07:47 Bed 11 Private MD: Diagnosis: Displaced spiral fracture of shaft of humerus, right arm, initial encounter for closed fracture Presentation: 06/21 08:25 Chief complaint: Patient states: was walking through living room, tripped over rug, iw fell onto right arm, obvious deformity noted. Care prior to arrival: None. Mechanism of Injury: Fall. Trauma event details: Injury occurred in the [facility]. 08:25 Acuity: MAYTE 3 iw 08:25 Method Of Arrival: Wheelchair iw 08:25 Coronavirus screen: At this time, the client does not indicate any symptoms associated iw with coronavirus-19. Ebola Screen: Patient negative for fever greater than or equal to 101.5 degrees Fahrenheit, and additional compatible Ebola Virus Disease symptoms Patient denies exposure to infectious person. Patient denies travel to an Ebola-affected area in the 21 days before illness onset. No symptoms or risks identified at this time. Initial Sepsis Screen: Does the patient meet any 2 criteria? No. Patient's initial sepsis screen is negative. Does the patient have a suspected source of infection? No. Patient's initial sepsis screen is negative. Risk Assessment: Do you want to hurt yourself or someone else? Patient reports no desire to harm self or others. Onset of symptoms was June 21, 2021. Historical: - Allergies: 08:26 Fenoprofen; iw 08:26 Levaquin; iw 08:26 Nalfon; iw - PMHx: 08:26 covid may 2021; Diabetes - NIDDM; Hypertension; ovarian CA; iw - Immunization history:: Adult Immunizations up to date. - Social history:: Smoking status: Patient denies any tobacco usage or history of. Patient/guardian denies using alcohol. Screenin:27 Abuse screen: Denies threats or abuse. Denies injuries from another. Nutritional iw screening: No deficits noted. Tuberculosis screening: No symptoms or risk factors identified. Fall Risk None identified. Assessment: 08:26 General: Appears uncomfortable, Behavior is calm, cooperative. Pain: Complains of pain iw in right arm. Neuro: Level of Consciousness is awake, alert, obeys commands, Oriented to person, place, time, situation. Musculoskeletal: Bony deformity noted of right arm. 11:02 Reassessment: Patient appears in no apparent distress at this time. Patient and/or iw family updated on plan of care and expected duration. Pain level reassessed. Patient is alert, oriented x 3, equal unlabored respirations, skin warm/dry/pink. 12:23 Reassessment: Patient appears in no apparent distress at this time. Patient and/or ld1 family updated on plan of care and expected duration. Pain level reassessed. Patient is alert, oriented x 3, equal unlabored respirations, skin warm/dry/pink. ERP at bedside providing care. Vital Signs: 08:25 BP 123 / 73; Pulse 89; Resp 16; Temp 98.5; Pulse Ox 96% on R/A; Weight 79.38 kg; Pain iw 10/10; 12:24 BP 132 / 77; Pulse 80; Resp 17; Pulse Ox 97% ; ld1 ED Course: 07:47 Patient arrived in ED. ds1 08:25 Triage completed. iw 08:26 Arm band placed on. iw 08:30 Albino Rodney NP is PHCP. pm1 08:30 Kishore Rivera MD is Attending Physician. pm1 08:31 Dari Weber, ERIC is Primary Nurse. iw 09:56 XRAY Humerus RIGHT In Process Unspecified. EDMS 10:04 Sling applied to. mh5 10:05 Sling applied to right arm. mh5 12:33 Orthoglass splint: Coaptation splint applied on right arm. mh5 12:45 Mamadou Law MD is Referral Physician. pm1 12:56 Patient has correct armband on for positive identification. Placed in gown. Bed in low ld1 position. Call light in reach. Side rails up X2. 12:56 No provider procedures requiring assistance completed. Patient did not have IV access ld1 during this emergency room visit. Administered Medications: 08:40 Drug: [place] (HYDROcodone-acetaminophen) 10 mg-325 mg 1 tabs Route: PO; iw 09:00 Follow up: Response: No adverse reaction iw 10:14 Drug: Zofran (Ondansetron) 4 mg Route: PO; iw 11:41 Follow up: Response: No adverse reaction ld1 11:32 Drug: morphine 4 mg Route: IM; Site: left deltoid; iw 11:41 Follow up: Response: No adverse reaction ld1 Outcome: 12:47 Discharge ordered by . pm1 12:56 Discharged to home via wheelchair, with family. ld1 12:56 Condition: stable 12:56 Discharge instructions given to patient, family, Instructed on discharge instructions, follow up and referral plans. medication usage, Demonstrated understanding of instructions, follow-up care, medications, Prescriptions given X 1. 12:56 Patient left the ED. ld1 Signatures: Dispatcher [employer] EDWA Natacha Lennon ds1 Dari Weber RN RN iw Albino Rodney NP HOT DIE PRESS FEEDER pm1 Anai Weiss 5 Cassandra Rose RN RN ld1
[2021-06-21 13:01] VITALS: TEMP 98.5
[2021-06-21 13:02] VITALS: BP 132/77; O2SAT 97
== END 2021-06-21 12:56 | disposition home or self-care (01) ==
LOC: ER 07:47
DX: S42.341A Displaced spiral fracture of shaft of humerus, right arm, initial encounter for closed fracture (principal); W01.0XXA Fall on same level from slipping, tripping and stumbling without subsequent striking against object, initial encounter; Y93.89 Activity, other specified; Y92.019 Unspecified place in single-family (private) house as the place of occurrence of the external cause; Z88.1 Allergy status to other antibiotic agents; E11.9 Type 2 diabetes mellitus without complications; I10 Essential (primary) hypertension
CPT/HCPCS: 96372; 99284

== ENCOUNTER 2023-01-31 15:12 | Emergency (ER) | payer OTHER, SELFPAY ==
--- OUTSIDE RECORDS SUMMARY | 2023-01-31 15:43 | XMS REPORT | Continuity of Care Document ---
:1960 Author Organization [facility] t Address [address] [place] [address] [place] [id number] Care Team Providers Name Role Phone Jeffry Quach Primary Care Physician Doctor Unassigned, [place] Attending Clinician Unavailable Shahnaz Bonds MD Attending Clinician SHAHNAZ BONDS Attending Clinician Unavailable ROJELIO PINON Attending Clinician Unavailable Rojelio Pinon MD Attending Clinician Michael Canales MD Attending Clinician ROJELIO PINON Admitting Clinician Unavailable Payers Payer Name Policy Type Policy Number Effective Date Expiration Date S ventura URIAS BCBS BLUE [id number] 2019 2021 ADVANTAGE O 00:00:00 00:00:00 Problems Condition Condition Condition Status Onset Resolution Last Treating Co mments Source Name Details Category Date Date Treatment Clinician Date No known No known Disease Unive rs active active ity of problems problems [facility] Allergies, Adverse Reactions, Alerts Allergy Allergy Status Severity Reaction(s) Onset Inactive Treating Comm ents Source Name Type Date Date Clinician CIPROFLO DRUG Active Swelling 2020-0 Univer s XACIN 2-15 ity of (BULK) 00:00: [address] LEVOFLOX DRUG Active Swelling 2020-0 Univer s ACIN INGREDI 2-15 ity of 00:00: [address] Ciproflo Propensi Active Swelling 2020-0 Univ ers xacin ty to 2-15 ity of (Bulk) adverse 00:00: [place] reaction 00 Medical s Branch Levoflox Propensi Active Swelling Univ ers acin ty to 2-15 ity of adverse 00:00: [place] reaction 00 Medical s Branch MEPERIDI DRUG Active High Other-Cmnt Univ ers NE HCL INGREDI 3-08 ity of 00:00: [place] 00 Medical Branch Meperidi Propensi Active Other - See migraine Univers ne Hcl ty to comments 3-08 ity of adverse 00:00: [place] reaction 00 Medical s Branch Social History Social Habit Start Date Stop Date Quantity Comments Source Tobacco use and 2018-09-28 2018-09-28 Never used [facility] exposure 00:00:00 00:00:00 Medical Branch Sex Ass[birth year] [facility] 00:00:00 00:00:00 Medical Branch Smoking Status Start Date Stop Date Source Never smoker [facility] Medications Ordered Filled Start Stop Current Ordering Indication Dosage Frequency Signature Comments Components Source Medication Medication Date Date Medication? Clinician (SIG) Name Name PARoxetine 0 Yes [id number] 10mg Take 1 U nivers (PAXIL) 10 2-16 tablet [place] PARoxetine 0 Yes [id number] 10mg Take 1 U nivers (PAXIL) 10 2-16 tablet by [place] [facility] [place] PARoxetine 0 Yes [id number] 10mg Take 1 U nivers (PAXIL) 10 2-16 tablet by [place] mg [place] bed[place] [facility] [place] PARoxetine 0 Yes [id number] 10mg Take 1 U nivers (PAXIL) 10 2-16 tablet by [place] bed[place]. [facility] [place] PARoxetine 0 Yes [id number] 10mg Take 1 U nivers (PAXIL) 10 2-16 tablet by [place] mg [place] bed[place]. [facility] [place] METFORMIN 2018-07 Yes [id number] TAKE 2 U nivers ER 500 mg 1-08 TABLETS BY ity of 24 hr 00:00: MOUTH [place] tablet 00 TWICE Medical DAILY Branch METFORMIN 2018- Yes [id number] TAKE 2 U nivers ER 500 mg 1-08 TABLETS BY ity of 24 hr 00:00: MOUTH [place] tablet 00 TWICE Medical DAILY Branch METFORMIN 2018- Yes [id number] TAKE 2 U nivers ER 500 mg 1-08 TABLETS BY ity of 24 hr 00:00: MOUTH [place] tablet 00 TWICE Medical DAILY Branch METFORMIN 2018- Yes [id number] TAKE 2 U nivers ER 500 mg 1-08 TABLETS BY ity of 24 hr 00:00: MOUTH [place] tablet 00 TWICE Medical DAILY Branch METFORMIN 2018- Yes [id number] TAKE 2 U nivers ER 500 mg 1-08 TABLETS BY ity of 24 hr 00:00: MOUTH [place] tablet 00 TWICE Medical DAILY Branch lisinopril 0 Yes [id number] 20mg Take 1 U nivers 20 mg 9-10 tablet by ity of tablet 00:00: mouth [place] 00 daily. Medical Branch lisinopril 2018-0 Yes [id number] 20mg Take 1 U nivers 20 mg 9-10 tablet by ity of tablet 00:00: mouth [place] 00 daily. Medical Branch lisinopril 0 Yes [id number] 20mg Take 1 U nivers 20 mg 9-10 tablet by ity of tablet 00:00: mouth [place] 00 daily. Medical Branch lisinopril 2018-0 Yes [id number] 20mg Take 1 U nivers 20 mg 9-10 tablet by ity of tablet 00:00: mouth [place] 00 daily. Medical Branch lisinopril 2018-0 Yes [id number] 20mg Take 1 U nivers 20 mg 9-10 tablet by ity of tablet 00:00: mouth [place] 00 daily. Medical Branch glimepiride 2018-0 Yes [id number] 2mg Take 1 Univers 2 mg tablet 6-11 tablet by ity of 00:00: mouth 2 [place] 00 (two) Medical times Branch daily with meals. glimepiride 2018-0 Yes [id number] 2mg Take 1 Univers 2 mg tablet 6-11 tablet by ity of 00:00: mouth 2 [place] 00 (two) Medical times Branch daily with meals. glimepiride 2018-0 Yes [id number] 2mg Take 1 Univers 2 mg tablet 6-11 tablet by ity of 00:00: mouth 2 [place] 00 (two) Medical times Branch daily with meals. glimepiride 2018-0 Yes [id number] 2mg Take 1 Univers 2 mg tablet 6-11 tablet by ity of 00:00: mouth 2 [place] (two) Medical times Branch daily with meals. glimepiride 2018-0 Yes [id number] 2mg Take 1 Univers 2 mg tablet 6-11 tablet by ity of 00:00: mouth 2 [place] (two) Medical times Branch daily with meals. pravastatin Yes 40mg Take 1 Univ ers 40 mg 4-10 tablet by ity of tablet 00:00: mouth at [place] [address] bedtime. Medical Branch pravastatin Yes 40mg Take 1 Univ ers 40 mg 4-10 tablet by ity of tablet 00:00: mouth at [place] [address] bedtime. Medical Branch pravastatin Yes 40mg Take 1 Univ ers 40 mg 4-10 tablet by ity of tablet 00:00: mouth at [place] [address] bedtime. Medical Branch pravastatin Yes 40mg Take 1 Univ ers 40 mg 4-10 tablet by ity of tablet 00:00: mouth at [place] [address] bedtime. Medical Branch pravastatin Yes 40mg Take 1 Univ ers 40 mg 4-10 tablet by ity of tablet 00:00: mouth at [place] [address] bedtime. Medical Branch QUEtiapine Yes Take 50mg [...] Branch increase to 100mg nightly thereafter metoprolol 0 Yes 25mg Take 1 Tab U nivers [...] Time Observation Value Comments Source Systolic blood 2021-06-24 16:38:00 148 mm[Hg] [facility] Diastolic blood 2021-06-24 16:38:00 84 mm[Hg] [facility] 2021-06-24 16:38:00 68 /min [facility] Body temperature 2021-06-24 16:38:00 36.11 Lizette [facility] Respiratory rate 2021-06-24 16:38:00 15 /min [facility] Body height 2021-06-24 16:38:00 152.4 cm [facility] Body weight 2021-06-24 16:38:00 79.379 kg [facility] BMI 2021-06-24 16:38:00 34.18 kg/m2 [facility] Procedures Procedure Date / Time Performed Performing Clinician Sourc e EXTERNAL PROVIDER 2021-07-05 06:01:00 Doctor Unassigned, [facility] [place] REC[facility] Name [facility] Encounters Start End Encounter Admission Attending Care Care Encounter Source Date/Time Date/Time Type Type Clinicians Facility Department ID 2021-07-05 2021-07-05 Orders Doctor VILA [id number] Univers 00:00:00 00:00:00 Only Unassigned, MANUEL [id number] ity of [place] [facility] [id number] Fahad as [id number] [address] 2021-07-01 2021-07-01 Telephone [facility] [id number] Univers 00:00:00 00:00:00 Shahnaz [employer] [id number] it y of [place] [id number] Fhaad as LAST?BLEA [id number] In shi [address] MEDICAL OFFICE [facility] 2021-06-25 2021-06-25 Telephone [facility] [id number] Univers 00:00:00 00:00:00 Shahnaz [employer] [id number] it y of [place] [id number] Fahad as LAST?BLEA [id number] In shi [address] MEDICAL OFFICE [facility] 2021-06-24 2021-06-24 Office [facility] [id number] Univers 10:19:27 10:51:29 Visit Shahnaz [employer] [id number] it y of [place] [id number] Fahad as LAST?BLEA [phone] In shi AHSAN [address] [place] [address] MEDICAL OFFICE [facility] 2021-06-24 2021-06-24 Outpatient R [facility] [id number] Univers 10:00:00 10:51:29 SHAHNAZBARB nguyen [facility] 2021-06-24 2021-06-24 Outpatient R [facility] [id number] Univers 10:00:00 10:00:00 SHAHNAZ nguyen [facility] 2021-06-24 2021-06-24 Orders Doctor VILA [id number] Univers 00:00:00 00:00:00 Only Unassigned, MANUEL [id number] ity of [place] [facility] [id number] Fahad as [phone] [facility] 009 [place] 2019-10-25 2019-10-25 Orders Doctor CADENCE [id number] Univers 00:00:00 00:00:00 Only Unassigned, MANUEL [id number] ity of [place] [facility] [id number] Fahad as [id number] [address] 2019-09-07 2019-09-08 Emergency X VASUT, RUST ERT [id number] Univers 20:51:07 01:39:00 ROJELIO ity of [facility] 2019-09-07 2019-09-08 Emergency Vasut, TRAUMA [id number] Univers 20:51:07 01:39:00 Rojelio [facility] [id number] [id number] [phone] [facility] 014 Branch 2019-04-02 2019-04-02 [facility] [id number] Univers 00:00:00 00:00:00 Michael Mcdonald [id number] i ty of [id number] [place] L[place] [phone] In dical nal [address] Building Results This patient has no known results.
[2023-01-31 16:02] LABS: Absolute Lymphocytes (CBC) 2.3 K/uL (0.7-4.9); Hematocrit 39.6 % (36.0-45.0); Lymphocytes % 23.7 % (15.3-44.8); MCV 87.1 fL (80-100); MPV 7.3 fL (7.6-11.3); RBC Red Blood Cell Count 4.55 M/uL (3.86-4.86)
[2023-01-31 16:11] LABS: Protime INR 0.84
[2023-01-31 16:37] LABS: Bilirubin Direct 0.1 mg/dL (0-0.2); Bilirubin Indirect, Calculated 0.6 mg/dL (0.2-0.8); Bilirubin Total 0.7 mg/dL (0.2-1.0); Potassium 3.7 mEq/L (3.5-5.1); Protein, Total 7.3 g/dL (6.4-8.2); Troponin High Sensitivity 4.7 pg/mL (<58.9)
--- NOTE | 2023-01-31 16:43 | RAD REPORT ---
EXAM DESCRIPTION: Jaket Single View01/31/2023 4:17 pm CLINICAL HISTORY: dyspne COMPARISON: Chest Single View dated 06/14/2021; Chest Single View dated 06/07/2021; Chest Single Vie w dated 07/31/2017 TECHNIQUE: Portable AP view of the chest. FINDINGS: The lungs are clear. Left basilar atelectasis. No pneumothorax or effusion. The cardiomed iastinal contours are unremarkable. IMPRESSION: No acute cardiopulmonary process.
--- NOTE | 2023-01-31 17:57 | RAD REPORT ---
EXAM DESCRIPTION: CT - Abdomen Pelvis W Contrast - 01/31/2023 5:07 pm CLINICAL HISTORY: Abdominal pain diffuse COMPARISON: Chest CT 06/07/2021. TECHNIQUE: Thin axial CT imaging of the abdomen and pelvis was performed following intravenous admin istration of 100 mL Isovue-300. Multiplanar reformats were generated and reviewed. All CT scans are performed using dose optimization technique as appropriate and may include automated exposure control or mA/KV adjustment according to patient size. FINDINGS: No suspicious findings in the lung bases. Segment 4B well-circumscribed 1.3 centimeter hypoattenuating focus, not well characterized, could rep resent a small cyst. Adrenal glands, spleen, and pancreas show no suspicious findings. Gallbladder an d biliary tree are also without suspicious finding. Symmetric renal function is seen with no hydronephrosis or suspicious renal mass. Bilateral fluid den sity cortical cysts, largest at the right lower pole measuring 2.2 centimeter. No dilated bowel loops or bowel wall thickening. Colonic diverticulosis. No free air, free fluid or i nflammatory stranding. No hernia, mass or bulky lymphadenopathy. The urinary bladder is without signi ficant finding. No suspicious bony findings. Healing/healed antro lateral right sixth and seventh rib fractures. IMPRESSION: No acute intra-abdominal process. Healing/ healed antro lateral right sixth and seventh rib fractures. Please correlate for focal tende rness. Hepatic 1.3 centimeter hypoattenuating focus, not well characterized, but most suggestive of a benign cyst.
[2023-01-31] MEDS ORDERED: ACETAMINOPHEN 500 MG TAB ONE (18:09)
[2023-01-31] MEDS ORDERED: IBUPROFEN 400 MG TAB ONE (18:09)
[2023-01-31] MEDS ORDERED: lisinopriL 20 MG TAB ONE (18:16)
[2023-01-31] MEDS ORDERED: lisinopriL 10 MG TAB ONE (18:19)
[2023-01-31 18:43] LABS: Specific Gravity 1.016 (1.005-1.030); Urine Bacteria <20 /HPF (<20); Urine Bilirubin NEGATIVE (Negative); Urine Blood Negative (Negative); Urine Clarity Extremely Turbid (Clear); Urine Color Light-Yellow (Yellow); Urine Glucose 4+ (Over) (Negative); Urine Mucus Slight /HPF (None Seen); Urine Protein NEGATIVE (Negative); Urine Urobilinogen Normal (Normal)
--- NOTE | 2023-01-31 18:46 | ER ---
Nurse's Notes [facility] Name: Caryn Johnson Age: 62 yrs Sex: Female : 1960 Arrival Date: 01/31/2023 Time: 15:12 Bed 13 Private MD: Diagnosis: Dyspnea;Abdominal pain, Generalized Presentation: 01/31 15:19 Chief complaint: Patient states: she is having abdominal pain after she eats, feels ap3 like her heart is racing. Patient reports intermittent nausea, and that she feels bloated. Coronavirus screen: At this time, the client does not indicate any symptoms associated with coronavirus-19. Ebola Screen: No symptoms or risks identified at this time. Initial Sepsis Screen: Does the patient meet any 2 criteria? No. Patient's initial sepsis screen is negative. Does the patient have a suspected source of infection? No. Patient's initial sepsis screen is negative. Risk Assessment: Do you want to hurt yourself or someone else? Patient reports no desire to harm self or others. Onset of symptoms is unknown. 15:19 Method Of Arrival: Wheelchair ap3 15:19 Acuity: MAYTE 3 ap3 Triage Assessment: 15:21 General: Appears in no apparent distress. Behavior is cooperative, anxious. Pain: ap3 Complains of pain in abdomen. Neuro: Level of Consciousness is awake, alert, obeys commands, Oriented to person, place, time, situation. Cardiovascular: Patient's skin is warm and dry. Respiratory: Reports shortness of breath Airway is patent Respiratory effort is even, unlabored, Respiratory pattern is regular, symmetrical, Onset: The symptoms/episode began/occurred at an unknown time. the patient has mild shortness of breath. Historical: - Allergies: 15:21 Fenoprofen; ap3 15:21 Levaquin; ap3 15:21 Nalfon; ap3 - PMHx: 15:21 covid may 2021; Diabetes - NIDDM; Hypertension; ovarian CA; ap3 - Immunization history:: Client reports receiving the 2nd dose of the Covid vaccine. - Social history:: Smoking status: Patient denies any tobacco usage or history of. Screenin:22 Abuse screen: Denies threats or abuse. Nutritional screening: No deficits noted. ap3 Tuberculosis screening: No symptoms or risk factors identified. 16:00 [facility] ED Fall Risk Assessment (Adult) History of falling in the last 3 months, ko1 including since admission No falls in past 3 months (0 pts) Confusion or Disorientation No (0 pts) Intoxicated or Sedated No (0 pts) Impaired Gait No (0 pts) Mobility Assist Device Used No (0 pt) Altered Elimination No (0 pt) Score/Fall Risk Level 0 - 2 = Low Risk Oriented to surroundings, Maintained a safe environment, Educated pt \T\ family on fall prevention, incl call for assistance when getting out of bed, Assessed \T\ reinforced patient's understanding of fall precautions, Provided non-skid footwear, Hourly rounding (assess needs \T\ fall precautionary measures) done, Used ambulatory aids as needed (educated on \T\ assisted with), Used gait belt as appropriate. Assessment: 16:00 Cardiovascular: Rhythm is regular. Respiratory: Airway is patent Breath sounds are ko1 clear bilaterally. Vital Signs: 15:19 Pulse 86; Resp 17; Temp 99; Pulse Ox 100% ; ap3 15:23 BP 196 / 117; ap3 17:52 BP 188 / 89; Pulse 82; Resp 18; Pulse Ox 100% ; ko1 18:00 BP 198 / 104; Pulse 74; Resp 18; Pulse Ox 99% ; ko1 19:12 BP 171 / 89; Pulse 72; Resp 16; Pulse Ox 99% ; ll3 ED Course: 15:16 Patient arrived in ED. im 15:16 Monty Glass MD is Attending Physician. jr11 15:21 Triage completed. ap3 15:22 Arm band placed on left wrist. ap3 15:49 Minerva Morrison, ERIC is Primary Nurse. ko1 15:56 Initial lab(s) drawn, by me, sent to lab. Inserted saline lock: 22 gauge in left wrist, tm3 using aseptic technique. 16:00 Patient has correct armband on for positive identification. Placed in gown. Bed in low ko1 position. Call light in reach. Side rails up X 1. Provided Education on: na. Client placed on continuous cardiac and pulse oximetry monitoring. NIBP monitoring applied. playground monitor on. Door closed. Noise minimized. Lights dimmed. Warm blanket given. 16:11 EKG done, by ED staff. tm3 16:16 Basic Metabolic Panel Sent. ko1 16:16 D-Dimer Sent. ko1 16:16 LFT's Sent. ko1 16:16 Magnesium Sent. ko1 16:16 NT PRO-BNP Sent. ko1 16:16 PT-INR Sent. ko1 16:16 Troponin HS Sent. ko1 16:19 XRAY Chest (1 view) In Process Unspecified. EDMS 17:09 CT Abd/Pelvis - IV Contrast Only In Process Unspecified. EDMS 18:18 UAM Sent. ko1 18:46 Brooks Sargent MD is Referral Physician. jr11 19:11 No provider procedures requiring assistance completed. IV discontinued, intact, ll3 bleeding controlled, No redness/swelling at site. Pressure dressing applied. Administered Medications: 18:02 Drug: Acetaminophen PO 1000 mg Route: PO; ko1 18:02 Drug: Ibuprofen PO 400 mg Route: PO; ko1 18:18 Drug: Lisinopril PO 10 mg Route: PO; ko1 Medication: 19:12 VIS not applicable for this client. ll3 Outcome: 18:46 Discharge ordered by . jr11 19:11 Discharged to home ambulatory, with family. ll3 19:11 Condition: stable 19:11 Discharge instructions given to patient, family, Instructed on discharge instructions, follow up and referral plans. medication usage, Demonstrated understanding of instructions, follow-up care, medications, Prescriptions given X 2. 19:12 Patient left the ED. ll3 Signatures: Dispatcher [employer] EDMS Marco Reynoso 3 Corina Goldsmith RN RN ap3 Prakash Saldana RN RN ll3 Monty Glass MD MD jr11 Minerva Morrison RN RN ko1 Carola Garcia Corrections: (The following items were deleted from the chart) 17:54 17:52 BP 188 / 89; Pulse 51bpm; Resp 18bpm; Pulse Ox 100%; ko1 ko1 18:29 18:27 BP 198 / 104; Pulse 74bpm; Resp 18bpm; Pulse Ox 99%; ko1 ko1
--- NOTE | 2023-01-31 18:47 | EDPHYS ---
Physician Documentation [facility] Name: Caryn Johnson Age: 62 yrs Sex: Female : 1960 Arrival Date: 01/31/2023 Time: 15:12 Bed 13 Private MD: ED Physician Monty Glass HPI: 01/31 15:42 Patient is a 62-year-old female who states she has multiple complaints 1 complaint is jr11 that she has had abdominal bloating swelling, feels distended for weeks, is not on any pain medicine, denies any diarrhea or constipation. Patient states it just very uncomfortable all the time. Patient also feels palpitations, and at times feels like she cannot take a full breath in. Patient also endorses generalized weakness, nonfocal.. Historical: - Allergies: 15:21 Fenoprofen; ap3 15:21 Levaquin; ap3 15:21 Nalfon; ap3 - PMHx: 15:21 covid may 2021; Diabetes - NIDDM; Hypertension; ovarian CA; ap3 - Immunization history:: Client reports receiving the 2nd dose of the Covid vaccine. - Social history:: Smoking status: Patient denies any tobacco usage or history of. ROS: 15:42 All other systems are negative. jr11 Exam: 15:42 Constitutional: This is a well developed, well nourished patient who is awake, alert, jr11 and in no acute distress. Head/Face: Normocephalic, atraumatic. Eyes: Extra-ocular motions intact. Lids and lashes normal. Conjunctiva and sclera are non-icteric and not injected. Cornea within normal limits. Periorbital areas with no swelling, redness, or edema. Chest/axilla: Normal chest wall appearance and motion. Nontender with no deformity. No lesions are appreciated. Cardiovascular: Regular rate and rhythm with a normal S1 and S2. No gallops, murmurs, or rubs. Normal PMI, no JVD. No pulse deficits. Respiratory: Lungs have equal breath sounds bilaterally, clear to auscultation and percussion. No rales, rhonchi or wheezes noted. No increased work of breathing, no retractions or nasal flaring. Abdomen/GI: Soft, non-tender, with normal bowel sounds. No distension or tympany. No guarding or rebound. No evidence of tenderness throughout. MS/ Extremity: Pulses equal, no cyanosis. Neurovascular intact. Full, normal range of motion. Vital Signs: 15:19 Pulse 86; Resp 17; Temp 99; Pulse Ox 100% ; ap3 15:23 BP 196 / 117; ap3 17:52 BP 188 / 89; Pulse 82; Resp 18; Pulse Ox 100% ; ko1 18:00 BP 198 / 104; Pulse 74; Resp 18; Pulse Ox 99% ; ko1 19:12 BP 171 / 89; Pulse 72; Resp 16; Pulse Ox 99% ; ll3 MDM: 15:25 Patient medically screened. jr11 15:42 Differential diagnosis: Anemia Bronchitis pneumonia, Patient with multiple complaints, jr11 for her chest, will rule out pneumonia, will do a chest x-ray, will send a D-dimer rule out pulmonary embolus. No chest pain, low risk ACS, symptoms have been going on for days therefore will send a troponin rule out ACS. For her abdomen, soft nontender but feels distended, will likely CT rule out intra-abdominal pathology. Data reviewed: vital signs, nurses notes. 16:12 ED course: EKG interpreted by me shows normal sinus rhythm left axis deviation, normal jr11 intervals, no acute ST changes. EKG nondiagnostic. sales attendant interpreted by me shows normal sinus rhythm rate of 75. 18:45 ED course: Patient with concern for urine infection, will treat, otherwise D-dimer jr11 negative, no concern for PE, chest clear. Patient to follow-up PCP for stress test. No concern ACS. 18:48 ED course: CT scan to my read, no acute intra-abdominal abnormalities.. 01/31 15:36 Order name: Basic Metabolic Panel; Complete Time: 16:39 01/31 15:36 Order name: CBC with Diff; Complete Time: 16:11 01/31 15:36 Order name: D-Dimer; Complete Time: 18:44 01/31 15:36 Order name: LFT's; Complete Time: 16:39 01/31 15:36 Order name: Magnesium; Complete Time: 16:39 01/31 15:36 Order name: NT PRO-BNP; Complete Time: 16:39 01/31 15:36 Order name: PT-INR; Complete Time: 18:44 01/31 15:36 Order name: Troponin HS; Complete Time: 16:39 01/31 18:03 Order name: UAM; Complete Time: 18:44 01/31 15:36 Order name: XRAY Chest (1 view); Complete Time: 16:46 01/31 16:47 Order name: CT Abd/Pelvis - IV Contrast Only; Complete Time: 18:02 01/31 15:36 Order name: EKG; Complete Time: 15:37 01/31 15:36 Order name: Cardiac monitoring; Complete Time: 15:49 01/31 15:36 Order name: EKG - Nurse/Tech; Complete Time: 16:10 01/31 15:36 Order name: IV Saline Lock; Complete Time: 16:16 01/31 15:36 Order name: Labs collected and sent; Complete Time: 15:57 01/31 15:36 Order name: O2 Per Protocol; Complete Time: 15:49 01/31 15:36 Order name: O2 Sat Monitoring; Complete Time: 15:49 Administered Medications: 18:02 Drug: Acetaminophen PO 1000 mg Route: PO; ko1 18:02 Drug: Ibuprofen PO 400 mg Route: PO; ko1 18:18 Drug: Lisinopril PO 10 mg Route: PO; ko1 Disposition Summary: 01/31/23 18:46 Discharge Ordered Location: Home [facility] Condition: Stable 11 Diagnosis - Dyspnea jr11 - Abdominal pain, Generalized jr11 Followup: 11 - With: Brooks Sargent MD - When: 2 - 3 days - Reason: If you dont have paralegal specialist for stress test Discharge Instructions: - Discharge Summary Sheet jr11 - Abdominal Pain, Adult jr11 - Shortness of Breath, Adult 11 Forms: - Medication Reconciliation Form jr11 - Thank You Letter jr11 - Antibiotic Education jr11 - Prescription Opioid Use jr11 - Patient Portal [email or web address] [facility] Prescriptions: - Cephalexin 500 mg Oral Capsule - take 1 capsule by ORAL route every 8 hours for 10 days; 30 capsule; Refills: 0, jr11 Product Selection Permitted - dicyclomine 20 mg Oral Tablet - take 1 tablet by ORAL route 3 times per day prn bloating; 20 tablet; Refills: jr11 0, Product Selection Permitted Signatures: Dispatcher [employer] Corina Russell RN RN ap3 Monty Glass MD MD jr11 Minerva Morrison RN RN ko1
--- NOTE | 2023-01-31 20:18 | EKG ---
Test Date: 2023-01-31 Test Time: 16:07:22 Gear Generator Set Up Operator: BILL MEASUREMENT RESULTS: Intervals: Rate: 76 WV: 158 QRSD: 88 QT: 406 QTc: 456 [place]: P: 46 WV: 158 QRS: -36 T: 67 INTERPRETIVE STATEMENTS: Normal sinus rhythm Left axis deviation Abnormal ECG Compared to ECG 06/16/2021 20:35:31 Left-axis deviation now present Myocardial infarct finding no longer present Electronically Signed On 01-31-23 20:17:19 CDT by Latrell Dean
[2023-01-31 20:51] VITALS: TEMP 99
[2023-01-31 21:07] VITALS: BP 198/104; O2SAT 99
== END 2023-01-31 19:12 | disposition home or self-care (01) ==
LOC: ER 15:12
DX: R10.84 Generalized abdominal pain (principal); R06.00 Dyspnea, unspecified
CPT/HCPCS: 36415; 71045; 74177; 80048; 80076; 81001; 83735; 83880; 84484; 85025; 85379; 85610; 93005; 99285; Q9967